=== PATIENT | male | born 1950 | race Caucasian/White ===

== ENCOUNTER 2024-06-10 13:22 | Outpatient (CLI) | payer MEDICARE, OTHER, SELFPAY ==
--- NOTE | ~2024-06-10 | XR_ITS ---
Left Knee Technique: AP, lateral, and sunrise views were obtained. Clinical History: Arthritis Findings: No fracture or dislocation is seen. Osseous alignment is anatomic. There is mild medial com partment narrowing. Minimal patellar osteophyte formation noted. Soft tissues are unremarkable. No alisa int effusion is seen. Impression: Mild degenerative changes, as above. Reviewed, dictated and finalized at location . Impression: Mild degenerative changes, as above.
--- OUTSIDE RECORDS SUMMARY | 2024-06-11 13:55 | XMS_ITS | Referral Summary ---
Author Organization [facility] Address [address] [place] [address] Care Team Providers Care Technician [employer] Name Role Phone Jesus Vasquez MD Primary Care Provider [phone] Marie Lundberg MD Unavailable Adis Archer MD Unavailable Jackie Rae DO Unavailable [phone] Encounters Date Type Department Care Team Description 05/13/2024 Telephone [facility] [address] [address] Jesus Vasquez MD Med Refill 05/13/2024 1:00 PM CDT Office Visit [facility] [address] [address] Ema Hough NP Acute URI (Primary Dx); Class 2 obesity due to excess calories without serious comorbidity with body mass index (BMI) of 35.0 to 35.9 in adult 05/04/2024 10:15 AM CDT Procedure visit [facility], [address] [place] [address] Orin Rose Au.D. Sensorineural hearing loss, bilateral (Primary Dx) 04/12/2024 9:45 AM [employer] DEPARTMENT CHAIR Infusion [facility] Non-Oncology Infusion [address] [place] [id number] Arteriosclerosis of coronary artery (Primary Dx) 04/04/2024 Orders Only [facility] Non-Oncology Infusion [id number] [place] [address] DaviesCuauhtemoc from Last 3 Months Allergies Active Allergy Reactions Criticality Noted Date Comments Isosorbide Joint pain Low 09/17/2017 Lisinopril Cough Low 07/18/2014 Xbzeevq-Bma-Blz Reductase Inhibitors Muscle pain Medium Medications magnesium oxide (MAG-OX) 400 mg (241.3 mg elemental magnesium) tabletIndications:hy pomagnesemia Take 1 tablet (400 mg total) by mouth 2 (two) times a day 11 08/24/19 18 Active cholecalciferol (VITAMIN D-3) 2,000 unit tablet Take 1 tablet (2,000 Units total) by mouth daily. 30 tablet 09/18/19 18 Active valsartan (DIOVAN) 320 mg tablet Take 1 tablet (320 mg total) by mouth daily Active carboxymethylcellulo se (REFRESH PLUS) 0.5 % dropperette 1 drop Ac tive triamcinolone (KENALOG) 0.1 % paste Apply 0.25 inches to teeth 2 (two) times a day as needed for mucositis 06/24/19 20 Active travoprost (TRAVATAN Z) 0.004 % drops Administer 1 drop into both eyes nightly Active dilTIAZem (CARDIZEM) 90 mg tabletIndications:Pa roxysmal Supraventricular Tachycardia Take 1 tablet (90 mg total) by mouth 4 (four) times a day 120 tablet 02/15/19 21 Active sotaloL (BETAPACE) 120 mg tablet Take 1 tablet (120 mg total) by mouth daily 30 tablet 02/16/19 21 Active warfarin (COUMADIN) 5 mg tabletIndications:Ve nous Thrombosis Take 1 tablet (5 mg total) by mouth daily 30 tablet 02/15/19 21 Active Additional Information Patient taking differently:5 mg oral Daily,MWF 1.5 tab (5MG each) every other day 1 pill., Indications: Venous Thrombosis, Reported on 05/13/2024 potassium chloride (KLOR-CON ORAL) Take 20 mg by mouth Active ezetimibe (ZETIA) 10 mg tablet 09/29/19 21 Active inclisiran (Leqvio) 284 mg/1.5 mL syringe Leqvio 284 mg/1.5 mL syringe 02/09/18 70 Active latanoprost (XALATAN) 0.005 % ophthalmic solution Administer 1 drop into both eyes nightly 11/11/19 23 Active multivitamin tabletIndications:Vi tamin Deficiency Prevention Take 1 tablet by mouth daily Active amoxicillin 500 mg capsule TAKE FOUR CAPSULES BY MOUTH ONE HOUR BEFORE APPOINTMENT 04/14/19 25 Active methylPREDNISolone (MEDROL DOSEPACK) 4 mg DosepackIndications: Acute URI Take as directed on package 1 packet 05/14/19 25 025 levoFLOXacin (LEVAQUIN) 500 mg tabletIndications:Up per Respiratory/HEENT Infection Take 1 tablet (500 mg total) by mouth daily for 10 days 10 tablet 05/14/19 25 025 Active Problems Problem Noted Date Diagnosed Date Pneumonia of right lower lobe due to infectious organism 07/10/2023 Assessment & Plan (07/10/2023 8:02 PM CDT): Resolving as anticipated. Complete Levaquin. Increase fluids. Follow-up if symptoms are not fully resolving Osteoarthritis of left knee 06/09/2023 Assessment & Plan (06/09/2023 4:11 PM CDT): Patient reports some catching, worse with turning and locking up; has pain associated with knee, not severe Will continue monitor closely; will refer to orthopedics if symptoms worsen or limit patient's activities Personal history of colonic polyps 11/11/2021 Overview (11/11/2021): Added automatically from request for surgery [id number] Family history of colon cancer 11/11/2021 Overview (11/11/2021): Added automatically from request for surgery [id number] Sensorineural hearing loss (SNHL) of both ears 0 06/22/2020 Assessment & Plan (06/24/2022 4:42 PM CDT): Stable, cleared implants in place Assessment & Plan (10/09/2020 11:21 AM CDT): Stable, has bilateral cochlear implants; reports that hearing is improving though still has generalized decreased hearing DVT (deep venous thrombosis) 02/05/2020 Overview (02/08/2020): Added automatically from request for surgery [id number] Assessment & Plan (12/03/2023 1:18 PM CDT): Stable, well controlled; DVT occurred after surgery; has been stable on anticoagulation for atrial fibrillation No evidence of recurrent disease; continue warfarin to maintain therapeutic range of INR 2-3 Assessment & Plan (02/12/2021 12:36 PM [employer]ICE [employer]PARTMENT CHAIR): Stable well controlled, on warfarin for atrial fibrillation; continue warfarin at therapeutic doses INR between 2-3 Assessment & Plan (10/09/2020 11:21 AM CDT): Stable, patient continues to follow with Pulmonary Medicine for PE burden Continue warfarin, patient on 5 mg daily and 7.5 mg Thursday Assessment & Plan (03/20/2020 2:27 PM [employer]AL [employer]ICE DEPARTMENT CHAIR): Currently on warfarin, difficulty with controlling INR, may transitionto Xarelto at future date if needs to continue on anticoagulation Benign prostatic hyperplasia with nocturia 01/12 Overview (01/13/2020): Week daytime urine stream, nocturia 4 times per night Assessment & Plan (06/09/2023 4:11 PM CDT): Stable, well controlled with current medications; few episodes of decreased urinary stream Continue to monitor closely Assessment & Plan (11/21/2022 2:54 PM CDT): - stream is weak but not bothersome to patient. Denies increase in symptoms. - allprior PSA in normal range - will continue to monitor Assessment & Plan (01/13/2020 9:39 AM [employer]ICE DEPARTMENT CHAIR): Discussed causes of BPH with patient and how it impacts urine screen increases nocturia Prescribed tamsulosin today to evaluate for improvement in nocturnal symptoms Pulmonary asbestosis 11/04/2019 Overview (11/04/2019): History of working in [employer] No advancement to lung cancer at this time Assessment & Plan (12/03/2023 1:18 PM CDT): Stable, well controlled; history of working stimulus; no evidence of lung cancer or advancement at this time Assessment & Plan (06/09/2023 4:10 PM CDT): Well controlled, no significant dyspnea or difficulty with breathing Will continue to monitor closely Assessment & Plan (11/21/2022 2:56 PM CDT): - No SOB or worsening of exercise intolerance. Will plan regular surveillance. Patient currently asymptomatic. 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; had some hypoxic brain injury; continue to monitor Assessment & Plan (11/21/2022 2:55 PM CDT): - no FND and fully recovered - continue BP management - Continue exetimibe and LeQvio Assessment & Plan (06/24/2022 4:42 PM CDT): Stable, no major residual effects or repeat neurological episodes Assessment & Plan (07/02/2021 4:13 PM CDT): Stable, no new recurrent neurological symptoms Assessment & Plan (11/04/2019 3:01 PM CDT): Stable, no residual deficits, no new neurological symptoms Presence of cardiac pacemaker 10/03/2019 Overview (01/13/2020): MRI Safe Skin lesion 06/24/2019 Assessment & Plan (06/24/2019 5:02 PM CDT): With diffuse sun damage and history of treatment for non-melanoma skin cancer Current lesion just started a few days ago I recommend keep clean Use topical vaseline Plan for derm referral if persistent Class 2 obesity due to exces s calories without serious comorbidity with body mass index (BMI) of 35.0 to 35.9 in adult 06/24/2019 Assessment & Plan (05/13/2024 1:44 PM CDT): Weight appropriate for patient. Assessment & Plan (12/03/2023 1:17 PM CDT): Stable, well controlled; no major changes to weight; encouraged continued limitation caloric intake as well as 30 minutes moderate intensity exercise 5 days per week Assessment & Plan (07/10/2023 8:04 PM CDT): BMI 34.10. Discussed healthy diet and exercise. Encourage weight loss Assessment & Plan (06/09/2023 4:10 PM CDT): Stable, improving; continue to encourage regular weight loss through activity and dietary changes Assessment & Plan (06/24/2022 4:41 PM CDT): Weight is stable, improving, continue to monitor encourage regular physical activity and limiting calories through portion control Assessment & Plan (12/15/2021 10:00 AM [employer]ICE [employer]MENT CHAIR): Stable, mild decrease in weight from prior Continue to encourage weight loss Assessment & Plan (11/04/2019 3:00 PM CDT): Encourage portion control with diet, patient does not have regular exercise, 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 Assessment & Plan (06/24/2019 5:03 PM CDT): discussed healthy diet, exercise and adequate sleep Body mass index is 33.15 kg/m . Aortic calcification (CMS/HCC) 06/24/2019 Assessment & Plan (12/03/2023 1:17 PM CDT): Stable, well controlled; follows with cardiology; continue with appropriate lipid control and blood pressure control Assessment & Plan (11/21/2022 4:31 PM CDT): - continue to mange BP and cholesterol. Patient currently asymptomatic. Assessment & Plan (10/09/2020 11:17 AM CDT): Stable, follows with cardiology and vascular specialist Will continue to monitor for further development Assessment & Plan (10/26/2019 4:35 PM CDT): Incidental finding on CXR 01/2018 Continue BP control, pradaxa Intolerant of statin Assessment & Plan (06/24/2019 5:04 PM CDT): Incidental finding on CXR 01/2018 Continue BP control, pradaxa Intolerant of statin Vitamin D deficiency 06/24/2019 Assessment & Plan (07/10/2023 8:05 PM CDT): Continue to take supplement Assessment & Plan (06/24/2019 5:05 PM CDT): Low in the past 05/2018 - 25(OH) Vit D 49 ng/mL Stable on current Paroxysmal atrial fibrillation 05/26/2018 Assessment & Plan (12/03/2023 1:16 PM CDT): Stable, well controlled, rate controlled, no major issues with anticoagulation Continue sotalol 120 mg daily, diltiazem 90 mg q.I.d., warfarin as needed to maintain therapeutic INR of 2-3 Assessment & Plan (07/10/2023 8:04 PM CDT): Asymptomatic in office with RRR upon examination. Continue sotalol and warfarin per Cardiology Assessment & Plan (06/09/2023 4:10 PM CDT): Stable, well controlled, rate controlled today; pacemaker in place, regular place Continue diltiazem 90 mg q.I.d., sotalol 120 mg daily, warfarin as needed to maintain INR between 2-3 Assessment & Plan (11/21/2022 2:51 PM CDT): - f/u with cardiology for regular INR check; has been in therapeutic range. - continue to avoid increasing intake of foods high in vit K - Continue warfarin, diltiazem, and sotalol Assessment & Plan (06/24/2022 4:40 PM CDT): Stable, rate controlled, on warfarin for management Continue Cardizem 90 mg q.i.d., Betapace 100 mg daily, valsartan 320 mg daily, warfarin 7.5 mg Thursday, 5 mg other days Assessment & Plan (12/15/2021 9:59 AM [employer]ICE DEPARTMENT CHAIR): Reports some easy bleeding with warfarin, no melena hematochezia Continues to follow with Cardiology Continue digoxin 125 mcg daily, diltiazem 90 mg q.i.d., sotalol 120 mg daily, valsartan 320 minute g daily Warfarin 0.5 mg Thursday, 5 mg other days a week Assessment & Plan (07/02/2021 4:12 PM CDT): Stable, no recent bruising or bleeding, no recent INR Patient heart rate is at target Continue digoxin 125 mcg daily, diltiazem 90 mg q.i.d., sotalol 120 mg daily Warfarin Thursday 7.5 mg; 5 mg for rest of week Check INR today Assessment & Plan (02/12/2021 12:35 PM [employer]INAL JUSTICE DEPARTMENT CHAIR): Stable, rate controlled, has pacemaker in place Patient on warfarin therapy for anticoagulation No significant episodes of GI bleeds or bruising or bleeding events Continue follow-up with Cardiology for management of symptoms Assessment & Plan (10/09/2020 11:20 AM CDT): Stable, rate controlled; today appears to be in sinus rhythm Patient continues on warfarin for atrial fibrillation and DVT prophylaxis Will continue to monitor, patient follows with Cardiology for comanagement Pacemaker in place for sick sinus syndrome Continue digoxin 125 mcg daily, diltiazem 90 mg 4 times per day, sotalol 120 mg daily Assessment & Plan (06/27/2020 1:20 PM CDT): Stable, rate controlled, well controlled on warfarin Continue to monitor INR and heart rate Assessment & Plan (03/20/2020 2:28 PM [employer]INAL JUSTICE DEPARTMENT CHAIR): Rate controlled, no hypotension or presyncope; continue to monitor Assessment & Plan (11/04/2019 3:01 PM CDT): Stable, well controlled, patient is status post electric cardioversion on 11/02 Patient has AICD in place Currently holding beta-blockers and cardiology started amiodarone for rhythm control Patient on Pradaxa for anticoagulation Patient has follow-up scheduled cardiology to evaluate successive cardioversion, today patient is regular rate and rhythm on physical exam Assessment & Plan (10/26/2019 4:35 PM CDT): s/p pacemaker Cardiology considering ablation Patient asymptomatic. Assessment & Plan (06/24/2019 5:03 PM CDT): NSR today on exam. 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 - report good energy - Use CPAP while sleeping Assessment & Plan (11/04/2019 2:59 PM CDT): Patient reports decreased sleep at night and episodes of interrupted sleep waking at 1:00 a.m. Patient has worked multiple shifts in past which may contribute to shift sleep disorder Assessment & Plan (10/26/2019 4:36 PM CDT): Stable on current Assessment & Plan (12/14/2018 12:15 PM [employer]AL [employer]ICE DEPARTMENT CHAIR): Stable on current regimen History of left mastoidectomy 11/10/2016 Gastroesophageal reflux disease 08/10/2013 Assessment & Plan (12/15/2021 10:00 AM [employer]AL JUSTICE DEPARTMENT CHAIR): Stable, well controlled Continue pantoprazole 40 mg daily Assessment & Plan (02/12/2021 12:36 PM CR[employer]INAL JUSTICE DEPARTMENT CHAIR): Stable, well controlled; continue pantoprazole 40 mg daily Assessment & Plan (10/09/2020 11:22 AM CDT): Stable, well controlled Continue pantoprazole 40 mg daily Essential hypertension 06/25/2013 Assessment & Plan (12/03/2023 1:15 PM CDT): Stable, well controlled, blood pressure at goal; no chest pain or pressure Continue diltiazem 90 mg q.I.d., sotalol 120 mg daily, valsartan 320 mg daily Assessment & Plan (07/10/2023 8:03 PM CDT): BP well controlled at 105/70. Continue to limit salt in diet and take diltiazem 90 mg 4 times daily and valsartan 320 mg daily Assessment & Plan (06/09/2023 4:09 PM CDT): Stable, well controlled, blood pressure at goal Continue diltiazem 90 mg q.I.d., sotalol 120 mg daily, valsartan 320 mg daily Assessment & Plan (11/21/2022 2:49 PM CDT): - continue valsartan Qday - BPP well controlled Assessment & Plan (06/24/2022 4:40 PM CDT): Stable, well controlled; blood pressure at target today Continue diltiazem 90 mg q.i.d., Betapace 120 mg daily, valsartan 320 mg daily Assessment & Plan (12/15/2021 10:00 AM [employer]INAL JUSTICE DEPARTMENT CHAIR): Stable, well controlled; blood pressure at target Continue above medications Assessment & Plan (07/02/2021 4:12 PM CDT): Stable, blood pressure well controlled; no chest pain headaches are episodes of orthostatics Continue valsartan 320 mg daily Assessment & Plan (02/12/2021 12:35 PM CRIMINAL JUSTICE DEPARTMENT CHAIR): Stable, well controlled; blood pressure at target Continue to follow with Cardiology continue valsartan 320 mg daily, Betapace 120 mg daily, diltiazem 90 mg q.i.d. Assessment & Plan (10/09/2020 11:18 AM CDT): Stable well controlled, blood pressure at target Continue valsartan 325 mg daily, diltiazem 90 mg 4 times per day Assessment & Plan (06/27/2020 1:20 PM CDT): Blood pressure at target, continue with medication as listed above Assessment & Plan (03/20/2020 2:28 PM CR[employer]INAL JUSTICE DEPARTMENT CHAIR): bp at target today with no hypotension, continue current medication Assessment & Plan (01/13/2020 9:38 AM CR[employer]INAL JUSTICE DEPARTMENT CHAIR): Stable well controlled, blood pressure at target today Continue current medication Assessment & Plan (11/04/2019 2:58 PM CDT): At target blood pressure today Patient taking valsartan for blood pressure control Holding beta-scotty due to recent electric cardioversion Assessment & Plan (10/26/2019 4:35 PM CDT): Controlled Cont current Assessment & Plan (06/24/2019 5:03 PM CDT): Well controlled Cont current. Assessment & Plan (12/14/2018 12:15 PM CR[employer]INAL JUSTICE DEPARTMENT CHAIR): Let controlled on current regimen continue current medication Dyslipidemia 06/24/2013 Assessment & Plan (12/03/2023 1:16 PM CDT): Stable, well controlled; lipids at goal Continue Leqvio 84 mg every 6 months Assessment & Plan (07/10/2023 8:05 PM CDT): Continue to limit fats in diet and take Zetia 10 mg daily Assessment & Plan (06/09/2023 4:11 PM CDT): Stable, well controlled, lipids at goal Continue lqvio 284 mg, Zetia 10 mg Assessment & Plan (06/24/2022 4:41 PM CDT): Stable, well controlled; last LDL above target of 120 Continue Zetia 10 mg daily, Leqvio weekly Assessment & Plan (07/02/2021 4:13 PM CDT): Stable, well controlled; does not tolerate statin; continue Zetia 10 mg daily Assessment & Plan (06/27/2020 1:20 PM CDT): Does not tolerate statin therapy, encourage dietary changes in activity changes in order to reduce cholesterol History of non-ST elevation myocardial infarctio n (NSTEMI) 06/15/2013 Arteriosclerosis of coronary artery 06/15/2013 Assessment & Plan (06/09/2023 4:10 PM CDT): Stable, well controlled; no chest pain, no changes to activity levels Patient has history of significant bleeding risk Currently on warfarin for management of atrial fibrillation; not a good candidate for ASA 81 mg daily due to increased bleeding risk Continue to monitor risk factors for heart disease Assessment & Plan (06/27/2020 1:19 PM CDT): Stable, well controlled, no current chest pain Patient continue on digoxin, diltiazem, sotalol, valsartan Warfarin for atrial fibrillation, no bleeding or bruising events Will continue to monitor INR Resolved Problems Problem Noted Date Diagnosed Date Resolved Date Encounter for screening colonoscopy 11/11/2021 12/02/2023 Overview (11/11/2021): Added automatically from request for surgery [id number] Pulmonary embolism without a cute cor pulmonale 02/06/2020 12/03/2023 Assessment & Plan (03/20/2020 2:28 PM CR[employer]INAL [employer]ICE DEPARTMENT CHAIR): Continue on warfarin A-fib 12/29/2019 03/05/2020 Overview (12/29/2019): Added automatically from request for surgery [id number] Assessment & Plan (01/13/2020 9:38 AM CRIMINAL JUSTICE DEPARTMENT CHAIR): In office rate and rhythm controlled, and blood pressure well controlled Has history of sick sinus syndrome Patient is scheduled for cardiac ablation on January 23 Continue on current medications for rhythm control including amiodarone and diltiazem for rate control BMI 32.0-32.9,adult 09/14/2017 06/24/19 20 Assessment & Plan (09/14/2017 10:37 AM CDT): Body mass index is 32.23 kg/m . BMI Follow-up includes: nutrition counseling, exercise counseling and education provided. Viral upper respiratory tract infection 09/14/2017 06/24/2019 Assessment & Plan (09/14/2017 10:46 AM CDT): Drink plenty of fluids. OTC medications include: Ibuprofen 2 to 3 tabs every 6 hours or Tylenol 2 tabs every 4 hours. Sudafed (behind the pharmacy) as directed. Mucinex as directed to thin the secretions. Flonase 1 spray each nostril daily. If your symptoms worsen or you develope a fever > 102, please call the office. Acute diffuse otitis externa of left ear 11/10/2016 06/24/2019 Assessment & Plan (11/10/2016 1:58 PM CDT): Mr. Martinez nis a 66 year old male with history of left mastoidectomy who presents with sensation of moisture or drainage in the left ear. Upon examination, there is a moderate purulent discharge in the left ear canal. There is a bulging or swelling in the ear canal which possibly represents inflammation, granuloma or abscess. Left ear was gently cleaned under microscopy. A culture was obtained. Patient will start Ciprodex otic suspension 4 drops into the left ear 2 times per day and follow up with Dr. Rosario. Plantar fasciitis 08/16/2014 06/24/2019 Overview (05/15/2016): Plantar fasciitis Temporary cerebral vascular dysfunction 06/25/2013 11/04/2019 Incontinence of feces 06/25/20132019 Overview (05/14/2016): INCONTINENCE OF FECES Cataract of both eyes 03/23/20122019 Assessment & Plan (12/14/2018 12:12 PM [employer]INAL [employer]ICE DEPARTMENT CHAIR): No current issues stable on current regimen Immunizations Immunization Administration Dates Next Due DTaP, Unspecified 02/10/2012 Influenza, Quad, Adjuvantate d, Intramuscular 11/16/2021 Influenza, Quadrivalent, Hig h Dose, Preservative Free, Intrr 11/21/2022,11/07/2020,10/26/2019 Influenza, Split 11/04/2012,11/09/2009 Influenza, Trivalent, High D ose, Split, Preservative Free, Intramuscular 12/02/2023,11/26/2018,12/06/2017 Influenza, Trivalent, IM (MDV) 12/03/2010 Influenza, Trivalent, Recomb inant, Egg Free, Preservative Free, Antibiotic Free, IM (FLUBLOK) 12/01/2014,11/30/2014 Influenza, Unspecified 11/17/2022(Deferr ed: Patient Refused),11/12/2020,11/09/2016 Pfizer SARS-CoV-2 Monovalent Vaccination (12+ Yrs) PURPLE 11/12/2020,04/18/2020,03/28/2020 Pneumococcal Conjugate PCV 13 02/08/2015 Pneumococcal Polysaccharide PPV23 10/26/2019, Tdap 01/13/2020 ZOSTER LIVE 04/02/2011 ZOSTER Recombinant 08/13/2019,03/29/2019 Social History Tobacco Use Types Packs/Day Years Used Date Smoking Tobacco: Never Smokeless Tobacco: Never Tobacco Cessation:Counseling Given: Not Answered Alcohol Use Standard Drinks/Week Comments Yes 6 (1 standard drink = 0.6 oz pur e alcohol) AUDIT-C Answer Date Recorded Q1: How often do you have a drink containing alc ohol? 2-3 times a week 06/04/2022 Average Number of Drinks Not on file 023 Frequency of Binge Drinking Not on file 05/11 PHQ-2 Answer Date Recorded PHQ-2 Total Score (If total score is 3 or more points, staff should administer the PHQ-9) 0 05/13/2024 Personal Safety Answer Date Recorded Have you ever been in or are you currently in a harmful physical or emotional relationship or is someone making you feel afraid or unsafe? 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 Not on file Not on file Not on file Last Filed Vital Signs Vital Sign Reading Time Taken Comments Blood Pressure 112/78 05/13/2024 12:49 PM CDT Pulse 80 05/13/2024 12:49 PM CDT Temperature 36.8 C (98.2 F) 05/13/2024 12:49 PM CDT Respiratory Rate 20 05/13/2024 12:4 9 PM CDT Oxygen Saturation 97% 05/13/2024 12: 49 PM CDT Inhaled Oxygen Concentration - - Weight 104.1 kg (229 lb 9.6 oz) 025 12:49 PM CDT Height 170.2 cm (5' 7 ) 05/13/2024 12:4 9 PM CDT Body Mass Index 35.96 05/13/2024 12:49 PM CDT Plan of Treatment Not on file Medical Devices Implanted Type Area Assembler Surgical Garment Device Identifier Shelf Expiration Date Model / Serial / Lot [employer] [id number] Yuval Huntalign 30mm 7fr 50mm 65cm 1 Push Delivery - [id number] Implanted:Qty: 1 on 02/08/2020 by Gilbert Ramos MD at [facility] IVC Filter [employer] [id number] / / Procedures Procedure Name Priority Date/Time Associated Diagnosis Comments HEPATITIS C ANTIBODY Routine 05/27/2023 2:15 PM CDT Need for hepatitis C screening test COLONOSCOPY 12/30/2021 10:08 AM CRIMINAL JUSTICE DEPARTMENT CHAIR from Last 3 Months or Most Recently Relevant to Health Maintenance Results * Hepatitis C antibody Blood (05/27/2023 2:15 PM CDT) Hep C Ab Nonreactive Nonreactive Comment: Interpretive Data Nonreactive: Antibodies to HCV not detected. Does NOT exclude the possibility of recent exposure to HCV. Equivocal: Equivocal for HCV antibodies. Supplemental molecular testing will be automatically performed to determine infection status in accordance with current CDC screening recommendations. Reactive: Positive for HCV antibodies. This may represent current or past HCV infection. Supplemental molecular testing will be automatically performed to determine current infection status in accordance with current CDC screening recommendations. Interpretive data was last revised on 2019. Testing performed by: [facility], [address] [place] [address]., [id number] Blood 05/27/2023 2:15 PM CDT 05/27/2023 7:29 PM CDT us Jesus Vasquez MD LAB MICROBIOLOGY - GENERA L ORDERABLES Final Result CESIA YIP MATTAWAN [facility] [place] [address] * COLONOSCOPY (12/30/2021 10:08 AM CRIMINAL JUSTICE DEPARTMENT CHAIR) Anatomical Region Laterality Modality Other Narrative Procedure Note Keith Payne MD - 12/30/2021 10:08 AM CST [facility] Patient Name: Eduard Martinez Procedure Date: 12/30/2021 10:08AM Date of : 1950 Admit Type: Outpatient Age: 71 Gender: Male Attending MD: Keith Payne M.D. Room: [facility] ENDOSCOPY ROOM 2 Note Status: Finalized Patient Profile: Refer to note in patient chart for documentation of history and physical. Procedure: Colonoscopy Indications: High risk colon cancer surveillance: Personalhistory of colonic polyps, Last colonoscopy: November 2016 Referring MD: Jesus Vasquez M.D. Providers: Keith Payne M.D. Impression: - Hemorrhoids found on perianal exam. - Four 3 to 5 mm polyps in the transverse colon andin the ascending colon, removed with a cold snare. Resected and retrieved. - Two 2 to 3 mm polyps in the ascending colon andin the cecum, removed with a jumbo cold forceps.Resected and retrieved. - Diverticulosis in the sigmoid colon. - The examination was otherwise normal. Recommendation: - Discharge patient to home. - Resume previous diet. - Continue present medications. - Resume Coumadin (warfarin) at prior dose in 2days. - Await pathology results. - Repeat colonoscopy in 3 years for surveillance. - Return to primary care physician as previously scheduled. Medicines: Propofol per Anesthesia Complications: No immediate complications. Estimated Blood Loss: Estimated blood loss: none. Procedure: Pre-Anesthesia Assessment: - This assessment was completed [Time ofAssessment] prior to the administration of sedation. The benefits, risks and alternatives of theprocedure and sedation were discussed and informed consentwas obtained. All questions were answered. Please referto the signed informed consent document in the medical record. The bowel preparation used was Miralax via single dose instruction. The bowel preparation used was bisacodyl tablets via single dose instruction.The scope was passed under direct vision. TheColonoscope [id number] was introduced through the anus and advanced to the the cecum, identified by appendiceal orifice and ileocecal valve. The colonoscopy was performed without difficulty. The patient tolerated the procedure well. The qualityof the bowel preparation was good. The ileocecalvalve, appendiceal orifice, and rectum werephotographed. Findings: Hemorrhoids were found on perianal exam. Four sessile polyps were found in the transverse colon and ascending colon. The polyps were 3 to 5 mm in size. These polyps were removedwith a cold snare. Resection and retrieval were complete. Verification of patient identification for the specimen was done by the physician and nurse using the patient's name and date. Estimated blood losswas minimal. Two sessile polyps were found in the ascending colon and cecum. The polyps were 2 to 3 mm in size. These polyps were removed with a jumbo cold forceps. Resection and retrieval were complete. Verification of patient identification for the specimen was done by the physician and nurse using the patient's name and date. Estimated blood losswas minimal. Multiple small and large-mouthed diverticula were found in thesigmoid colon. The exam was otherwise without abnormality. Electronically signed by Keith Payne M.D. Keith Payne M.D. 12/30/2021 11:04:10 AM Number of Addenda: 0 Note Initiated On: 12/30/2021 10:08 AM Procedure Code(s): --- Professional --- 02392, Colonoscopy, flexible; with removal of tumor(s), polyp(s), or other lesion(s) by snare technique [id number], 59, Colonoscopy, flexible; with biopsy, single or multiple Diagnosis Code(s): --- Professional --- K57.30, Diverticulosis of large intestine without perforation orabscess without bleeding D12.0, Benign neoplasm of cecum D12.2, Benign neoplasm of ascending colon D12.3, Benign neoplasm of transverse colon (hepatic flexure orsplenic flexure) K64.9, Unspecified hemorrhoids Z86.010, Personal history of colonic polyps CPT copyright 2020 [employer]. All rights reserved. The codes documented in this report are preliminary and upon academic coach reviewmay be revised to meet current compliance requirements. 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 ADVANCE DIRECTIVE 12/30/2021 10:58 AM Kalie ing Will ADVANCE DIRECTIVE 12/30/2021 10:58 AM 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 * Full Code (Latest Code Status on File) Date Activated Date Inactivated Comments 12/30/2021 9:59 AM 12/30/2021 3:49 PM * Full Code Date Activated Date Inactivated Comments 02/06/2020 5:36 AM 02/16/2020 8:58 PM Care Teams Technician Support Association Relationship Specialty Start Date End Date Jesus Vasquez MD [address] [place] [address] PCP - General Family Medicine 11/04/19 Marie Lundberg MD [address] [place] [address] Consulting Physician Cardiology 02/16/20 [place] [address] [id number] [place] [address] Consulting Physician Pulmonary Disease 02/16/20 Jackie Rae DO [address] [place] [id number] Referring Physician Dermatology 07/26/20
--- OUTSIDE RECORDS SUMMARY | 2024-06-11 13:55 | XMS_ITS | Encounter Summary ---
Author Organization [facility] Address [address] [place] [address] Phone Care Team Providers Care Track Watchman Name Role Phone Danish Brown MD Primary Care Provider No, Physician Primary Care Provider Jesus Vasquez MD Primary Care Provider [phone] Marie Lundberg MD Unavailable [phone] Adis Archer MD Unavailable Jackie Rae DO Unavailable [phone] Encounter Details Date Type Department Care Team (Late st Contact Info) Description 06/29/2017 Orders Only [facility] Provider, MD Yaya [address] [place] [id number] Social History Tobacco Use Types Packs/Day Years Used Date Smoking Tobacco: Never Smokeless Tobacco: Never Alcohol Use Standard Drinks/Week Comments No 0 (1 standard drink = 0.6 oz pur e alcohol) Sex and Gender Information Value Date Recorded Sex Assigned at Not on file Legal Sex Male 9:24 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 us Historical Provider LAB PATHOLOGY ORDERABLES Final Result documented in this encounter Visit Diagnoses Not on filedocumented in this encounter Additional Health Concerns Infection Onset Date Last Indicated Resolved Time COVID: Suspected 02/05/2020 02/05/2020 02/06/2020 12:20 AM MARRIAGE THERAPIST Respiratory Infection (ALEJANDRA), contact + droplet Comment:Automatically added due to negative COVID-19 result. 02/06/2020 02/06/2020 02/06/2020 9:5 1 AM MARRIAGE THERAPIST COVID: Suspected 02/11/2020 02/11/2020 02/12/2020 1:35 PM MARRIAGE THERAPIST Respiratory Infection (ALEJANDRA), contact + droplet Comment:Automatically added due to negative COVID-19 result. 02/12/2020 02/12/2020 02/13/2020 4:4 2 PM MARRIAGE THERAPIST COVID: Suspected 07/06/2023 07/06/2023 07/06/2023 9:10 AM CDT documented as of this encounter Care Teams Track Watchman Relationship Specialty Start Date End Date Danish Brown MD [address] [place] [address] PCP - General 05/09/16 08/24/19 No, Physician PCP - General 08/25/19 11/03/19 Jesus Vasquez MD [address] [place] [address] PCP - General Family Medicine 11/04/19 Marie Lundberg MD [address] [place] [address] Consulting Physician Cardiology 02/16/20 [place] [address] [facility] [address] [place] [address] Consulting Physician Pulmonary Disease 02/16/20 Jackie Rae DO [address] [place] [address] Referring Physician Dermatology 07/26/20 documented as of this encounter
--- OUTSIDE RECORDS SUMMARY | 2024-06-11 13:55 | XMS_ITS | CONTINUITY OF CARE DOCUMENT ---
Author Name saurabh wiley Address Unknown Organization [facility] Address [address] [facility] [address] [place] [address] Phone [phone] Care Team Providers Care Case Specialist Name Role Phone Toño MELÉNDEZ, Marie Unavailable RAMAKRISHNA HAYES MD Unavailable RAMAKRISHNA HAYES MD Unavailable PROBLEMS Condition Status Date Provider Notes Anticoagulation: coumadin active Anne Marie lara Fatigue, weakness active Marie Lundberg MD S/P Dual chamb PCM - Biotron ik ( MRI Safe) active Sonia Cardoso Exposure to SARS-associated coronavirus active Marie Lundberg MD Dizziness and giddiness active Marie esquivel MD Bradycardia active Marie Lundberg MD Sick sinus syndrome active Marie navarro MD CAD active Marie Lundberg MD NSTEMI S/P PDA STENT active Marie new MD HTN SYSTOLIC active Marie Lundberg MD DEEP VENOUS THROMBOPHLEBITIS , LEG, RIGHT active Marie Lundberg MD Dyslipidemia active Marie Lundberg MD GERD active Marie Lundberg MD Family History of Sudden Car diac : active ? Marie Lundberg MD Leg pain active Marie Lundberg MD Palpitations active Marie Lundberg MD Atrial fibrillation active Marie navarro MD Shortness of breath active Marie navarro MD Chest discomfort active Marie Shepard Carotid bruit active Hayden Kaye Poor sleep hygiene completed - Marie Lundberg MD Sleep apnea active Marie Lundberg MD Pulmonary embolism active Sarah Olguin Double vision active Sarah Olguin Hypertriglyceridemia active Rebekah Owens Obesity active Rebekah Owens Mitral regurgitation, mild active Marie leyva MD Tricuspid regurgitation, mild active Alba Lundberg MD PHYSICAL EXAMINATION completed - Alo Herrera MD ENCOUNTERS Date Type Provider Location Encounter Diag nosis - In-person encounter Office Visit Marie Ludnberg MD [facility] - In-person encounter Office Visit Marie Lundberg MD [facility] Office - In-person encounter Office Visit Marie Lundberg MD [facility] - In-person encounter Office Visit Marie Lundberg MD [facility] Mitral regurgitation, mildTricuspid regurgitation, mild - In-person encounter Office Visit Marie Lundberg MD [facility] - In-person encounter Office Visit Marie Lundberg MD [facility] - In-person encounter Office Visit Marie Lundberg MD [facility] Office HypertriglyceridemiaObesity - In-person encounter Office Visit Marie Lundberg MD [facility] - In-person encounter Office Visit Marie Lundberg MD [facility] Double vision - In-person encounter Office Visit Marie Lundberg MD [facility] - In-person encounter Office Visit Marie Lundberg MD [facility] - In-person encounter Office Visit Marie Lundberg MD [facility] Office - In-person encounter Office Visit Marie Lundberg MD [facility] - In-person encounter Office Visit Marie Lundberg MD [facility] - In-person encounter Office Visit Marie Lundberg MD [facility] Poor sleep hygieneSleep apneaPulmonary embolism - In-person encounter Office Visit Marie Lundberg MD [facility] - In-person encounter Office Visit Marie Lundberg MD [facility] - In-person encounter Office Visit Marie Lundberg MD [facility] - In-person encounter Office Visit Marie Lundberg MD [facility] - In-person encounter Office Visit Marie Lundberg MD [facility] - In-person encounter Office Visit Marie Lundberg MD [facility] - In-person encounter Office Visit Marie Lundberg MD [facility] - In-person encounter Office Visit Marie Lundberg [facility] Carotid bruit - In-person encounter Office Visit Marie Lundberg MD [facility] - In-person encounter Office Visit Marie Lundberg MD [facility] - In-person encounter Office Visit Marie Lundberg MD [facility] Chest discomfort - In-person encounter Office Visit Marie Lundberg MD [facility] Shortness of breath - In-person encounter Office Visit Marie Lundbreg MD [facility] Atrial fibrillation - In-person encounter Office Visit Marie Lundberg MD [facility] Office Palpitations - In-person encounter Office Visit Marie Lundberg MD [facility] NSTEMI S/P PDA STENTDyslipidemia - In-person encounter Office Visit Marie Lundberg MD [facility] - In-person encounter Office Visit Marie Lundberg MD [facility] Leg pain - In-person encounter Office Visit Marie Lundberg MD [facility] - In-person encounter Office Visit Marie Lundberg MD [facility] - In-person encounter Office Visit Marie Lundberg MD [facility] - In-person encounter Office Visit Marie Lundberg MD [facility] - In-person encounter Office Visit Marie Lundberg MD [facility] Family History of Sudden Cardiac : - In-person encounter Office Visit Marie Lundberg MD [facility] GERD - In-person encounter Office Visit Marie Lundberg MD [facility] - In-person encounter Office Visit Marie Lundberg MD [facility] - In-person encounter Office Visit Alo Herrera MD [facility] PHYSICAL EXAMINATIONNSTEMI S/P PDA STENTDyslipidemia - In-person encounter Office Visit Marie Lundberg MD [facility] DEEP VENOUS THROMBOPHLEBITIS, LEG, RIGHT - In-person encounter Office Visit Marie Lundberg MD [facility] CADNSTEMI S/P PDA STENTHTN SYSTOLIC VITAL SIGNS Date Observation Value Provider Body Mass Index (Ratio) 34.88 kg/m2 Matheus Moreno oxygen saturation, oximetry 95 % Marline Dasilva pulse rate 86 /min Marline Dasilva blood pressure, diastolic 82 mm[Hg] Em saima Dasilva blood pressure, systolic 116 mm[Hg] Adina ly Dasilva weight E&M 229.4 [lb_av] Marline Dasilva blood pressure, cuff size regular Em saima Dasilva height E&M 68 [in_i] Marline Dasilva Body Mass Index (Ratio) 34.63 kg/m2 Taye Lundberg MD oxygen saturation, oximetry 97 % Marline Dasilva pulse rate 82 /min Marline Dasilva blood pressure, diastolic 78 mm[Hg] Em saima Dasilva blood pressure, systolic 122 mm[Hg] Adina lauren Dasilva weight E&M 227.8 [lb_av] Marline Dasilva blood pressure, cuff size large Em saima Dasilva height E&M 68 [in_i] Marline Dasilva Body Mass Index (Ratio) 33.45 kg/m2 Taye Lundberg MD blood pressure, cuff size regular Ke rri Gruenenfelder blood pressure, diastolic 90 mm[Hg] Ke rri Gruenenfelder blood pressure, systolic 132 mm[Hg] Rubin Flores oxygen saturation, oximetry 94 % Sridevi Flores respiratory rate E&M 12 /min Sridevi barrera pulse rate 85 /min Sridevi abreu weight E&M 220 [lb_av] Sridevi Ayala lder height E&M 68 [in_i] Sridevi Gruenenfe lder Body Mass Index (Ratio) 34.21 kg/m2 Taye Lundberg MD blood pressure, cuff size regular Ke rri Gruenenfelder blood pressure, diastolic 82 mm[Hg] Ke rri Gruenenfelder blood pressure, systolic 146 mm[Hg] Ker ri Gruenenfelder oxygen saturation, oximetry 93 % Sridevi Gruenenfelder respiratory rate E&M 12 /min Sridevi G ruenenfelder pulse rate 83 /min Sridevi Gruenenfe lder weight E&M 225 [lb_av] Sridevi Gruenenfe lder height E&M 68 [in_i] Sridevi Gruenenfe lder Body Mass Index (Ratio) 34.66 kg/m2 Matheus Ahmedzai blood pressure, diastolic 91 mm[Hg] Li nkLogic blood pressure, systolic 135 mm[Hg] Sophia kLogic blood pressure, diastolic 91 mm[Hg] Ke rri Gruenenfelder blood pressure, systolic 135 mm[Hg] Ker ri Gruenenfelder blood pressure, cuff size large Ke rri Gruenenfelder oxygen saturation, oximetry 93 % Sridevi Gruenenfelder respiratory rate E&M 16 /min Sridevi G ruenenfelder pulse rate 87 /min Sridevi Gruenenfe lder weight E&M 228 [lb_av] Sridevi Gruenenfe lder height E&M 68 [in_i] Sridevi Gruenenfe lder Body Mass Index (Ratio) 34.21 kg/m2 Matheus Ahmedzai blood pressure, cuff size large Ri frankie Bello blood pressure, diastolic 88 mm[Hg] Ri frankie Bello blood pressure, systolic 127 mm[Hg] Harsh sanjay Bello oxygen saturation, oximetry 98 % Claire Bello respiratory rate E&M 16 /min Oscar Bello pulse rate 88 /min Claier Zapata son weight E&M 225 [lb_av] Claire Zapata son height E&M 68 [in_i] Claire Zapata son Body Mass Index (Ratio) 33.90 kg/m2 Matt camila Owens blood pressure, cuff size large Ke rri Gruenenfelder blood pressure, diastolic 86 mm[Hg] Ke rri Gruenenfelder blood pressure, systolic 122 mm[Hg] Ker ri Gruenenfelder oxygen saturation, oximetry 95 % Sridevi Gruenenfelder respiratory rate E&M 16 /min Sridevi G ruenenfelder pulse rate 76 /min Sridevi Gruenenfe lder weight E&M 223 [lb_av] Sridevi Gruenenfe lder height E&M 68 [in_i] Sridevi Gruenenfe lder Body Mass Index (Ratio) 34.82 kg/m2 Matheus Mercadomedzai blood pressure, cuff size large Ke rri Gruenenfelder blood pressure, diastolic 80 mm[Hg] Ke rri Gruenenfelder blood pressure, systolic 152 mm[Hg] Ker ri Gruenenfelder oxygen saturation, oximetry 95 % Sridevi Gruenenfelder respiratory rate E&M 14 /min Sridevi G ruenenfelder pulse rate 88 /min Sridevi Gruenenfe er weight E&M 229 [lb_av] Sridevi Shinenfe lder height E&M 68 [in_i] Sridevi Shinenfe er Body Mass Index (Ratio) 34.36 kg/m2 Taew on blood pressure, diastolic 80 mm[Hg] Li nkLog blood pressure, systolic 120 mm[Hg] Sophia kLogic blood pressure, cuff size large Ke rri Gruenenfelder blood pressure, diastolic 80 mm[Hg] Ke rri Gruenenfelder blood pressure, systolic 120 mm[Hg] Rubin ri Gruenenfelder oxygen saturation, oximetry 97 % Sridevi Shinenfmandaer respiratory rate E&M 14 /min Sridevi gore pulse rate 94 /min Sridevi Varshae [facility] weight E&M 226 [lb_av] Sridevi Varshae [facility] height E&M 68 [in_i] Sridevi Varshae [facility] Body Mass Index (Ratio) 34.36 kg/m2 Taew on blood pressure, resting Yes [facility] O'Lamine weight E&M 226 [lb_av] [facility] OLamine height E&M 68 [in_i] [facility] O'Lamine Body Mass Index (Ratio) 33.75 kg/m2 Taew on blood pressure, cuff size large Ke rri Gruenenfelder blood pressure, diastolic 84 mm[Hg] Ke rri Gruenenfelder blood pressure, systolic 132 mm[Hg] Rubin ri Gruenenfelder oxygen saturation, oximetry 98 % Sridevi Gruenenfelder respiratory rate E&M 16 /min Sridevi bustamantetierra pulse rate 80 /min Sridevi Ayala [facility] weight E&M 222 [lb_av] Sridevi Ayala [facility] height E&M 68 [in_i] Sridevi Ayala [facility] Body Mass Index (Ratio) 38.01 kg/m2 Taew on Sharif blood pressure, diastolic 80 mm[Hg] Phil Reeder blood pressure, systolic 130 mm[Hg] Pam Reeder oxygen saturation, oximetry 96 % Alfred Reeder respiratory rate E&M 16 /min Johnson Reeder pulse rate 79 /min Alfred Rice carey weight E&M 250 [lb_av] Alfred Rice [facility] height E&M 68 [in_i] Alfred Rice [facility] Body Mass Index (Ratio) 32.38 kg/m2 Taye Lundberg MD blood pressure, cuff size regular [facility] blood pressure, diastolic 70 mm[Hg] [facility], systolic 130 mm[Hg] Kri [facility] blood pressure, resting Yes [facility] 89 /min Concha Joe oxygen saturation, oximetry 96 % [facility] rate E&M 19 /min Concha Moab weight E&M 213 [lb_av] Concha Moab height E&M 68 [in_i] [facility] Body Mass Index (Ratio) 32.69 kg/m2 Taew on Sharif Inhaled O2 2 L/min [facility] blood pressure, cuff size regular Jan Diaz respiratory rate E&M 18 /min Concha Arriaga pulse rate 90 /min Concha Arriaga oxygen saturation, oximetry 96 % Concha Arriaga weight E&M 215 [lb_av] Concha Arriaga blood pressure, diastolic 70 mm[Hg] Jan Diaz blood pressure, systolic 112 mm[Hg] Ryley Arriaga height E&M 68 [in_i] Concha Moab Body Mass Index (Ratio) 31.62 kg/m2 Ta[place] on Sharif blood pressure, resting Yes [facility] blood pressure, diastolic 64 mm[Hg] [facility] blood pressure, systolic 108 mm[Hg] Maile ttany [facility] pulse rate 79 /min [facility] oxygen saturation, oximetry 96 % Cynthia Block weight E&M 208 [lb_av] Cynthia Block respiratory rate E&M 16 /min [facility] Block height E&M 68 [in_i] Cynthia Block Body Mass Index (Ratio) 34.33 kg/m2 Taye Lundberg MD blood pressure, diastolic 70 mm[Hg] Phil Reeder blood pressure, systolic 120 mm[Hg] Pam Cassiefrain Reeder oxygen saturation, oximetry 96 % Alfred Reeder respiratory rate E&M 20 /min Johnson Reeder pulse rate 81 /min Alfred hawk weight E&M 225.8 [lb_av] AlfredTayler pinto height E&M 68 [in_i] Alrfed hawk Body Mass Index (Ratio) 33.99 kg/m2 Taye Lundberg MD blood pressure, cuff size regular Jan ortez pulse rate 81 /min Concha Arriaga oxygen saturation, oximetry 96 % Concha Arriaga blood pressure, diastolic 80 mm[Hg] Jan ortez blood pressure, systolic 120 mm[Hg] Ryley vásquez respiratory rate E&M 19 /min Concha Arriaga weight E&M 223.6 [lb_av] Cocnha height E&M 68 [in_i] Concha Body Mass Index (Ratio) 33.45 kg/m2 Taew on Sharif blood pressure, cuff size large Ke rri Enuenenfwhite [facility] centerer blood pressure, diastolic 82 mm[Hg] Ke rri Enuenenfwhite [facility] centerer blood pressure, systolic 108 mm[Hg] Rubin ri Varshawhite [facility] oxygen saturation, oximetry 97 % Sridevi Shinenfwhite [facility] cent[facility] respiratory rate E&M 16 /min Sridevi G ezraenenfelder pulse rate 82 /min Sridevi Grromelnenfe [facility] weight E&M 220 [lb_av] Sridevi Gruenenfe [facility] height E&M 68 [in_i] Sridevi Cassidynenfe [facility] Body Mass Index (Ratio) 32.99 kg/m2 Taye Lundberg MD blood pressure, diastolic 88 mm[Hg] Fe tremayne Leung blood pressure, systolic 158 mm[Hg] Fel icia Leung oxygen saturation, oximetry 97 % Marine Leung respiratory rate E&M 16 /min Mairne Leung weight E&M 217 [lb_av] Marine Leung height E&M 68 [in_i] Marine Leung Body Mass Index (Ratio) 33.45 kg/m2 Ta[place] on Sharif blood pressure, cuff size regular Kr pérez Arriaga blood pressure, diastolic 80 mm[Hg] Jan sharita Joe blood pressure, systolic 130 mm[Hg] Jani [facility] pulse [facility] 70 /min [facility] saturation, oximetry 100 % Concha respiratory rate E&M 19 /min Concha weight E&M 220 [lb_av] Concha height E&M 68 [in_i] Concha Body Mass Index (Ratio) 33.75 kg/m2 Taye Lundberg MD blood pressure, cuff size regular Jan ortez blood pressure, diastolic 68 mm[Hg] Jan [facility] blood pressure, systolic 140 mm[Hg] Ryley [facility] oxygen saturation, oximetry 98 % Concha pulse rate 71 /min Concha respiratory rate E&M 19 /min Concha weight E&M 222 [lb_av] Concha height E&M 68 [in_i] Concha Body Mass Index (Ratio) 33.22 kg/m2 Taye Lundberg MD blood pressure, diastolic 101 mm[Hg] Fe tremayne Leung blood pressure, systolic 155 mm[Hg] Fel icia Leung pulse rate 72 /min Marine Leung oxygen saturation, oximetry 96 % Marine Leung respiratory rate E&M 16 /min Marine Leung weight E&M 218.50 [lb_av] Marine Leung height E&M 68 [in_i] Marine Leung Body Mass Index (Ratio) 33.75 kg/m2 Jord en Vargas blood pressure, diastolic 97 mm[Hg] Fe tremayne Leung blood pressure, systolic 148 mm[Hg] Fel icia Leung oxygen saturation, oximetry 96 % Marine Leung respiratory rate E&M 16 /min Marine Leung pulse rate 72 /min Marine Leung weight E&M 222 [lb_av] Marine Leung height E&M 68 [in_i] Marine Leung Body Mass Index (Ratio) 33.75 kg/m2 Jord en Vargas blood pressure, diastolic, standing 91 mm [Hg] Marie Lundberg MD blood pressure, systolic, standing 153 mm [Hg] Marie Lundberg MD blood pressure, diastolic 70 mm[Hg] Kr isty Moab blood pressure, systolic 118 mm[Hg] Kri sty Moab pulse rate 65 /min Concha Joe blood pressure, cuff size regular Jan Arriagaby oxygen saturation, oximetry 94 % Concha Joe respiratory rate E&M 17 /min Concha Moab weight E&M 222 [lb_av] Concha Joe height E&M 68 [in_i] Concha Moab Body Mass Index (Ratio) 33.30 kg/m2 Jord en Vargas pulse rate 66 /min Concha Joe respiratory rate E&M 17 /min Concha Moab oxygen saturation, oximetry 97 % Concha Moab blood pressure, diastolic 90 mm[Hg] Jan isty Moab blood pressure, systolic 140 mm[Hg] Kri sty Joe blood pressure, cuff size regular Jan isty Joe weight E&M 219 [lb_av] Concha Joe height E&M 68 [in_i] Concha Moab Body Mass Index (Ratio) 34.36 kg/m2 Taye Lundberg MD blood pressure, diastolic 103 mm[Hg] Dakota Bueno blood pressure, systolic 159 mm[Hg] Luisa VallesHemal oxygen saturation, oximetry 98 % Arely Bueno pulse rate 63 /min Arely Recio weight E&M 226 [lb_av] Arely Recio height E&M 68 [in_i] Arely Recio Body Mass Index (Ratio) 32.08 kg/m2 Taye Lundberg MD blood pressure, diastolic 80 mm[Hg] Phil HillLamine blood pressure, systolic 122 mm[Hg] Pam mann [facility] oxygen saturation, oximetry 96 % [facility] respiratory rate E&M 16 /min [facility] pulse rate 62 /min [facility] weight E&M 211 [lb_av] [facility] height E&M 68 [in_i] [facility] Body Mass Index (Ratio) 32.38 kg/m2 Taye Lundberg MD blood pressure, diastolic 74 mm[Hg] Shan Solis blood pressure, systolic 112 mm[Hg] Kamla Solis respiratory rate E&M 16 /min Everett Solis oxygen saturation, oximetry 97 % Everett Solis pulse rate 70 /min Everett [facility] weight E&M 213 [lb_av] Everett [facility] height E&M 68 [in_i] [facility] Body Mass Index (Ratio) 32.69 kg/m2 Taye Lundberg MD pulse rate 71 /min Jess Medina blood pressure, diastolic 80 mm[Hg] Phil Medina blood pressure, systolic 140 mm[Hg] Pam Medina oxygen saturation, oximetry 95 % Jess Medina weight E&M 215 [lb_av] Jess Adam respiratory rate E&M 17 /min Jess Adam height E&M 68 [in_i] Jess Adam blood pressure, resting Yes Vargas Calvo Body Mass Index (Ratio) 32.11 kg/m2 Vargas Calvo blood pressure, diastolic 90 mm[Hg] Phil Reeder blood pressure, systolic 151 mm[Hg] Pam Reeder oxygen saturation, oximetry 95 % Alfred Reeder respiratory rate E&M 18 /min Johnson Reeder pulse rate 63 /min Alfred Rice jinacarey weight E&M 211.2 [lb_av] Alfred pinto height E&M 68 [in_i] Alfred Rice carey blood pressure, diastolic 82 mm[Hg] Ne jatinder Diaz blood pressure, systolic 141 mm[Hg] Lyndsay yorka Diaz pulse rate 70 /min Danyelle Diaz oxygen saturation, oximetry 97 % Danyelle Diaz respiratory rate E&M 15 /min Danyelle Diaz Body Mass Index (Ratio) 32.23 kg/m2 [facility] [place] weight E&M 212 [lb_av] Danyelle Diaz blood pressure, diastolic 91 mm[Hg] Ne jatinder Diaz blood pressure, systolic 136 mm[Hg] Lyndsay beti Diaz pulse rate 74 /min Danyelle Diaz oxygen saturation, oximetry 97 % Danyelle Diaz respiratory rate E&M 15 /min Danyelle Diaz Body Mass Index (Ratio) 32.38 kg/m2 [facility] [place] weight E&M 213 [lb_av] Danyelle Emily blood pressure, diastolic 100 mm[Hg] Miguel miner Vince blood pressure, systolic 140 mm[Hg] Gayle harrison Vince pulse rate 61 /min Sonia Clarke oxygen saturation, oximetry 98 % Sonia Clarke respiratory rate E&M 16 /min Sonia Clarke Body Mass Index (Ratio) 32.35 kg/m2 Nathaniel Clarke weight E&M 212.8 [lb_av] Sonia Clarke blood pressure, diastolic 98 mm[Hg] Phil Reeder blood pressure, systolic 149 mm[Hg] Pam Yearacelycamila Reeder pulse rate 73 /min Alfred Rice kenn oxygen saturation, oximetry 96 % Alfred Reeder respiratory rate E&M 18 /min Johnson Reeder Body Mass Index (Ratio) 32.17 kg/m2 Ama Reeder weight E&M 211.6 [lb_av] Alfred portercarey blood pressure, diastolic 70 mm[Hg] Alon christy Agustina blood pressure, systolic 112 mm[Hg] Alon christy Berrios pulse rate 85 /min Alonchristy Berrios oxygen saturation, oximetry 97 % Alonchristy Berrios respiratory rate E&M 18 /min Alonchristy Agustina Body Mass Index (Ratio) 28.67 kg/m2 Alon'clarence gottlieb Agustina weight E&M 188.6 [lb_av] Alonnediamond Agustina Body Mass Index (Ratio) 30.83 kg/m2 Alon'clarence gottlieb Agustina blood pressure, diastolic 92 mm[Hg] Je christy Agustina blood pressure, systolic 140 mm[Hg] Alon christy Agustina pulse rate 73 /min Jechristy Agustina oxygen saturation, oximetry 98 % Rosamaria Berrios respiratory rate E&M 17 /min Rosamaria Berrios weight E&M 202.8 [lb_av] Rosamaria Berrios Body Mass Index (Ratio) 31.77 kg/m2 Stephany montiel Najera blood pressure, diastolic 90 mm[Hg] Stan osorio Najera blood pressure, systolic 149 mm[Hg] Angel akbar Najera pulse rate 71 /min Stacie Arvada oxygen saturation, oximetry 98 % Stacie Arvada respiratory rate E&M 16 /min Stacie Arvada weight E&M 209 [lb_av] [facility] Body Mass Index (Ratio) 29.49 kg/m2 [facility], diastolic 70 mm[Hg] As [facility] blood pressure, systolic 110 mm[Hg] [facility] pulse rate 67 /min [facility] oxygen saturation, oximetry 98 % [facility] respiratory rate E&M 15 /min Chi [facility]ro weight E&M 194 [lb_av] [facility] Body Mass Index (Ratio) 29.45 kg/m2 [facility] blood pressure, diastolic 80 mm[Hg] As [facility] blood pressure, systolic 116 mm[Hg] [facility] pulse rate 77 /min [facility] oxygen saturation, oximetry 97 % [facility] respiratory rate E&M 15 /min [facility] weight E&M 193 [lb_av] [facility] Body Mass Index (Ratio) 29.76 kg/m2 [facility] blood pressure, diastolic 85 mm[Hg] As [facility] blood pressure, systolic 134 mm[Hg] [facility] pulse rate 65 /min Pamdiamond [place] oxygen saturation, oximetry 97 % Pamdiamond [place] respiratory rate E&M 17 /min Chi [facility] weight E&M 195 [lb_av] Pamdiamond [place] blood pressure, diastolic 96 mm[Hg] As [facility] blood pressure, systolic 144 mm[Hg] [facility] Eron Body Mass Index (Ratio) 30.06 kg/m2 [facility] Vangiedharmesh pulse rate 65 /min Pamdiamond [place] oxygen saturation, oximetry 96 % Pamdiamond [place] respiratory rate E&M 17 /min Pam Eron weight E&M 197 [lb_av] Pamdiamond [place] Body Mass Index (Ratio) 29.76 kg/m2 [facility] blood pressure, diastolic 90 mm[Hg] As [facility] blood pressure, systolic 134 mm[Hg] [facility] Vangiedharmesh pulse rate 59 /min Pam milagro oxygen saturation, oximetry 94 % Pam Eron respiratory rate E&M 16 /min Pamdiamond [place] weight E&M 195 [lb_av] Pamdiamond [place] Body Mass Index (Ratio) 30.83 kg/m2 Anea ambreen Benny blood pressure, diastolic 80 mm[Hg] An eatris Benny blood pressure, systolic 120 mm[Hg] Ane atris Benny pulse rate 69 /min Rosemaryatrvirgen Zapata oxygen saturation, oximetry 97 % Mike Zapata respiratory rate E&M 18 /min Aneatri s Benny weight E&M 202 [lb_av] Mike Zapata height E&M 68 [in_i] Mike Zapata ALLERGIES Allergy Name Onset Date Reaction Criticality Status MORPHINE High Criticality suspende d LISINOPRIL chronic dry cough Low Criticality ac tive ATORVASTATIN BLE pain, painful to ambulate High Criticality active RESULTS Date Observation Value Provider Reference Range Interpretation Location coagulation managed by Jenny Sorto RN international normalized ratio (INR) 2.8 Jenny Sorto RN Normal coagulation managed by Jenny Sorto RN international normalized ratio (INR) 2.6 Jenny Sorto RN Normal international normalized ratio (INR) 2.4 Anne Marie Linda Normal coagulation managed by Anne Marie Linda RN Anne Marietete Linda international normalized ratio (INR) 2.3 Anne Marie Linda Normal coagulation managed by Anne Marie Linda RN Anne Marietete Linda coagulation managed by Jenny Sorto RN international normalized ratio (INR) 2.6 Anne Marie Linda Normal coagulation managed by Anne Marie Linda international normalized ratio (INR) 2.6 Anne Marie Linda Normal coagulation managed by Anne Marie Linda RN Anne Marietete Linda international normalized ratio (INR) 3.0 Anne Marie Linda Normal coagulation managed by Anne Marie Linda coagulation managed by Anne Marie Linda RN Anne Marietete Linda coagulation managed by Devon Zapata RN international normalized ratio (INR) 3.2 Devon Zapata RN Normal coagulation managed by Anne Marie Linda international normalized ratio (INR) 2.7 Anne Marie Linda Normal international normalized ratio (INR) 3.0 Anne Marie Linda Normal coagulation managed by Anne Marie Linda international normalized ratio (INR) 2.8 Anne Marie Alexei Normal coagulation managed by Anne Marie Linda RN Anne Marie Alexei coagulation managed by Anne Marie Linda RN Anne Marie Alexei international normalized ratio (INR) 3.2 Anne Marie Alexei Normal international normalized ratio (INR) 3.2 Anne Marie Alexei Normal coagulation managed by Anne Marie Linda RN Anne Marie Alexei international normalized ratio (INR) 3.0 Anne Marie Alexei Normal coagulation managed by Anne Marie Linda RN Anne Marietete Linda international normalized ratio (INR) 2.9 Anne Marie Alexei Normal coagulation managed by Anne Marie Linda RN Anne Marie Alexei coagulation managed by Antonina Lopez RN international normalized ratio (INR) 4.2 Antonina Lopez RN Normal prothrombin time (patient) 50.0 s Antonina Lopez RN international normalized ratio (INR) 3.5 Sridevi Grromelnepatricia Normal prothrombin time (patient) 42.4 s Sridevi Gruenenfelder international normalized ratio (INR) 3.2 Anne Marie Alexei Normal coagulation managed by Anne Marie Linda RN Anne Marietete Linda coagulation managed by Antonina Lopez RN international normalized ratio (INR) 2.8 Antonina Lopez RN Normal prothrombin time (patient) 33.6 s Antonina Lopez RN coagulation managed by Antonina Lopez RN international normalized ratio (INR) 4.1 Antonina Lopez RN Normal coagulation managed by Devon Zapata RN international normalized ratio (INR) 1.5 Devon Zapata RN Normal coagulation managed by Antonina Lopez RN international normalized ratio (INR) 3.2 Antonina Lopez RN Normal international normalized ratio (INR) 2.9 Anne Marie Linda Normal coagulation managed by Anne Marie Linda international normalized ratio (INR) 3.3 Anne Marie Alexei Normal coagulation managed by Anne Marie Linda RN Anne Marietete Linda coagulation managed by Antonina Lopez RN international normalized ratio (INR) 2.5 Antonina Lopez RN Normal prothrombin time (patient) 30.4 s Antonina Lopez RN international normalized ratio (INR) 2.2 Anne Marietete Linda Normal coagulation managed by Anne Marie Linda international normalized ratio (INR) 2.2 Anne Marietete Linda Normal coagulation managed by Anne Marie Linda international normalized ratio (INR) 2.6 Anne Marie Alexei Normal coagulation managed by Anne Marie Linda international normalized ratio (INR) 1.5 Anne Marie Linda Normal coagulation managed by Anne Marie Linda international normalized ratio (INR) 2.4 Anne Marie Linda Normal coagulation managed by Anne Marie Linda international normalized ratio (INR) 2.4 Anne Marie Alexei Normal coagulation managed by Anne Marie Linda international normalized ratio (INR) 2.4 Anne Marie Alexei Normal coagulation managed by Anne Marie Linda international normalized ratio (INR) 2.7 Anne Marieadam Linda Normal coagulation managed by Anne Marie Linda international normalized ratio (INR) 2.6 Anne Marie Linda Normal coagulation managed by Anne Marie Linda coagulation managed by Antonina Lopez RN international normalized ratio (INR) 2.5 Antonina Lopez RN Normal coagulation managed by Antonina Lopez RN international normalized ratio (INR) 2.3 Antonina Lopez RN Normal international normalized ratio (INR) 2.0 Anne Marietete Laurenenz Normal coagulation managed by Anne Marie Linda RN Anne Marietete Laurenenz international normalized ratio (INR) 1.4 Anne Marie Alexei Normal coagulation managed by Anne Marie Linda coagulation managed by Anne Marie Linda international normalized ratio (INR) 3.1 Sridevi Flores Normal prothrombin time (patient) 37.5 s Sridevi Flores coagulation managed by Anne Marie Linda prothrombin time (patient) 31.1 s Claire Bello international normalized ratio (INR) 2.6 Claire Bello Normal coagulation managed by Antonina Lopez RN international normalized ratio (INR) 2.8 Anne Marie Linda Normal coagulation managed by Anne Marie Linda coagulation managed by Anne Marie Linda prothrombin time (patient) 22.0 s Chastity Jey international normalized ratio (INR) 1.8 Chastity Jey Normal prothrombin time (patient) 22.0 s Anne Marie Alexei international normalized ratio (INR) 1.8 Anne Marie Alexei Normal coagulation managed by Anne Marie Linda coagulation managed by Anne Marie Linda prothrombin time (patient) 30.0 s Celeste Juarez international normalized ratio (INR) 2.5 Celeste Juarez Normal coagulation managed by Ama Sawyer RN prothrombin time (patient) 29.3 s Concha Joe international normalized ratio (INR) 2.4 Concha Joe Normal prothrombin time (patient) 33.6 s Maddy Carreno international normalized ratio (INR) 2.8 Maddy Carreno Normal coagulation managed by Anne Marie Linda prothrombin time (patient) 35.6 s Chastity Jey international normalized ratio (INR) 3.0 Chastity Jey Normal prothrombin time (patient) 29.8 s Concha Moab international normalized ratio (INR) 2.5 Concha Joe Normal coagulation managed by Anne Marie Linda prothrombin time (patient) 30.8 s Concha Joe international normalized ratio (INR) 2.6 Concha Moab Normal prothrombin time (patient) 25.4 s Concha Joe international normalized ratio (INR) 2.1 Concha Moab Normal coagulation managed by Anne Marie Linda RN Anne Marietete Linda prothrombin time (patient) 22.2 s Concha Moab international normalized ratio (INR) 1.8 Concha Joe Normal coagulation managed by Hugh Vo RN international normalized ratio (INR) 6.0 Hugh Vo RN Normal prothrombin time (patient) 39.8 s Cynthia Block international normalized ratio (INR) 3.3 Cynthia Dumont Normal prothrombin time (patient) 27.8 s Concha Moab international normalized ratio (INR) 2.3 Ama Sawyer RN Low activated partial thromboplastin time (aPTT) 47 s [facility] 24-33 High prothrombin time (patient) 13.1 s [facility] 9.1-12.0 High international normalized ratio (INR) 1.3 [facility] 0.8-1.2 High bacteria, urine microscopy Few [employer] None seen/Few epithelial cells, urine None seen [facility] 0 - 10 RBC, Urine 0-2 /hpf [facility] 0 - 2 WBC urine on microscopy 0-5 /hpf [facility] 0 - 5 urinalysis, microscopic examination See below: [facility] nitrate, urine Negative [facility] Negative urobilinogen, urine, semiquantitative (dipstick) 0.2 [facility] 0.2-1.0 bilirubin, urine Negative [facility] Negative hemoglobin, urine, by dipstick 1+ [facility] Negative Abnormal ketones, urine, by test strip Negative [facility] Negative glucose, urine Negative [facility] Negative protein, urine, semiquantitative (dipstick) Negative [facility] Negative/Tr humaira leukocyte esterase, urine, by dipstick Negative [facility] Negative appearance, urine Clear [facility] Clear urine color Yellow [facility] Yellow pH, urine, semiquantitative 6.5 [facility] 5.0-7.5 specific gravity, body fluid 1.009 [facility] 1.005-1.030 basophil count, absolute 0.0 x10E3/uL [facility] 0.0-0.2 Eosinophil Absolute Count 0.2 X10E3/UL [facility] 0.0-0.4 monocyte count, blood, automated 0.8 X10E3/UL [facility] 0.1-0.9 lymphocyte count, blood, automated 1.7 X10E3/UL [facility] 0.7-3.1 Absolute Neutrophils 4.6 X10E3/UL [facility] 1.4-7.0 basophils as percent of blood leukocytes 0 % [employer] Not Estab. eosinophils as percent of blood leukocytes 3 % [employer] Not Estab. monocytes as percent of blood leukocytes 11 % [employer] Not Estab. lymphocytes as percent of blood leukocytes 23 % [employer] Not Estab. neutrophils as percent of blood leukocytes 63 % [employer] Not Estab. platelet count 190 X10E3/UL [facility] 337-378 0020/08 /18 red blood cell distribution width 12.7 % [facility] 11.6-15.4 mean corpuscular hemoglobin concentration, RBC 33.0 G/DL [facility] 31.5-35.7 mean corpuscular hemoglobin, RBC 31.7 pg [facility] 26.6-33.0 mean corpuscular volume, RBC 96 fL [facility] 79-97 hematocrit, blood 50.3 % [facility] 37.5-51.0 hemoglobin, blood 16.6 g/dL [facility] 13.0-17.7 erythrocyte (RBC) count 5.24 X10E6/UL [facility] 4.14-5.80 leukocyte count, blood 7.3 X10E3/UL [facility] 3.4-10.8 alanine aminotransferase (SGPT), serum 22 1/L [facility] 0-44 aspartate aminotransferase (SGOT), serum 18 1/L [facility] 0-40 alkaline phosphatase, serum 69 1/L [facility] 39-117 bilirubin, serum, total 0.7 mg/dL [facility] 0.0-1.2 albumin/globulin ratio, serum 1.8 [facility] 1.2-2.2 globulin, serum 2.3 [facility] 1.5-4.5 albumin, serum 4.2 g/dL [facility] 3.8-4.8 protein, total, serum 6.5 g/dL [facility] 6.0-8.5 calcium, serum 9.1 mg/dL [facility] 8.6-10.2 carbon dioxide, venous blood 26 mmol/L [facility] 20-29 chloride, serum 103 mmol/L [facility] 96-106 potassium, serum 4.4 mmol/L [facility] 3.5-5.2 sodium, serum 141 mmol/L [facility] 440-840 7933/08 /18 urea nitrogen/creatinin e ratio, serum 19 [facility] 10-24 eGFR if 92 mL/min/{1. 73_m2} [facility] >59 eGFR if not 80 mL/min/{1. 73_m2} [facility] >59 creatinine, serum 0.96 mg/dL [facility] 0.76-1.27 urea nitrogen, blood 18 mg/dL [facility] 8-27 blood glucose, random 93 mg/dL [facility] 65-99 anion gap, serum 13.3 [facility] - albumin/globulin ratio, serum 3.0 g/dL [facility] 1.1 - 2.5 High globulin, serum 2.1 [facility] 2.3 - 3.8 Low urea nitrogen/creatinin e ratio, serum 16.7 [facility] - Estimated Glomerular Filtration Rate (calc) 64.4 (?) [facility] 59.0 - chloride, serum 106.7 mmol/L [facility] 98.0 - 107.0 potassium, serum 4.4 mmol/L [facility] 3.5 - 5.1 sodium, serum 144.0 mmol/L [facility] 136.0 - 145.0 creatinine, serum 1.2 mg/dL [facility] 0.7 - 1.2 carbon dioxide, venous blood 24.0 mmol/L [facility] 23.0 - 31.0 albumin, serum 4.4 g/dL [facility] 3.5 - 5.2 calcium, [facility]3 [facility] aspartate aminotransferase (SGOT), serum 15.0 1/L [facility] 0.0 - 40.0 alkaline phosphatase, serum 68.0 1/L [facility] 40.0 - 130.0 alanine aminotransferase (SGPT), serum 18.0 1/L [facility] 0.0 - 41.0 protein, total, serum 6.5 g/dL [facility] 6.6 - 8.7 Low bilirubin, serum, total 0.6 mg/[facility] - 1.2 urea nitrogen, blood 20.0 mg/dL [facility] 8.0 - 23.0 blood glucose, random 102.0 mg/dL [facility] 74[facility] - 99.0 High red blood cell distribution width, size density 43.8 fL [facility] - immature granulocytes, percentage of total cells, blood 0.5 % [facility] - nucleated red blood cells as percent of blood leukocytes 0.0 % [facility] - red blood cell (erythrocyte) count, per high power field 0.0 10*3/UL [facility] - eosinophils as percent of blood leukocytes 3.8 % [facility] - neutrophils as percent of blood leukocytes 61.8 % [facility] - Absolute Neutrophils 4.7 CELLS/UL [facility] 1.5 - 7.8 basophils as percent of blood leukocytes 0.4 % [facility] - Absolute Basophils 0.0 CELLS/UL [facility] 0.0 - 0.2 monocytes as percent of blood leukocytes 10.2 % [facility] Monocytes 0.8 CELLS/UL [facility] 0.2 - 1.0 lymphocytes as percent of blood leukocytes 23.3 % [facility] - Absolute Lymphocytes 1.8 CELLS/UL [facility] 0.9 - 3.9 mean platelet volume 10.5 (?) [facility] - platelet count 207.0 THOUSAND/U L [facility] 100.0 - 400.0 mean corpuscular hemoglobin concentration, RBC 32.5 G/DL [facility] 31.0 - 38.0 mean corpuscular hemoglobin, RBC 31.1 pg [facility] 25.0 - 35.0 mean corpuscular volume, RBC 95.8 fL [facility] 75.0 - 100.0 hematocrit, blood 49.9 % [facility] 35.0 - 55.0 hemoglobin, blood 16.2 g/dL [facility] 11.5 - 16.5 erythrocyte count, whole blood 5.2 MILLION/UL [facility] 3.5 - 5.5 HISTORY OF MEDICATION USE Medication Status Instructions Dates Provider Indications Com ments diltiazem HCl 90 mg tablet active TAKE 1 TABLET BY MOUTH 4 TIMES A DAY Anne Marie Alexei valsartan 320 mg tablet active TAKE 1 TABLET BY MOUTH EVERY DAY Anne Marie Alexei sotalol 120 mg tablet active TAKE 1 TABLET BY MOUTH TWICE DAILY Esme Rushing ezetimibe 10 mg tablet active Take 1 tablet by mouth once daily Esme Rushing warfarin 5 mg tablet active Take 1 1/2 tablet by mouth every evening except on take 2 tabs (10mg) Jenny Sorto RN warfarin 5 mg tablet completed Take 1 1/2 tablet by mouth every evening except on Mon & Fri take 2 tabs = (10mg) - Antonina Lopez RN valsartan 320 mg tablet completed Take 1 tablet by mouth once daily - Anne Marie Alexei ezetimibe 10 mg tablet completed Take 1 tablet via g-tube once a day - Esme Rushing ezetimibe 10 mg tablet completed Take 1 tablet by mouth once daily - Sridevi Flores Leqvio 284 mg/1.5 mL syringe active given in office only Anne Marie Linda Klor-Con M20 20 mEq tablet,ER particles/cryst als active Take 1 tablet by mouth once a day TAKE 1 TABLET BY MOUTH EVERY DAY Gavin Dash warfarin 5 mg tablet completed Take 1 1/2 tablet by mouth every evening except on Mon & Fri take 2 tabs (10mg) - Antonina Lopez RN sotalol 120 mg tablet completed TAKE 1 TABLET BY MOUTH TWICE A DAY - Esme Rushing warfarin 5 mg tablet completed TAKE 1 AND 1/2 TABLET BY MOUTH EVERY EVENING - Antonina Lopez RN warfarin 5 mg tablet completed Take 1 1/2 tablet by mouth every evening - Devon Zapata RN Klor-Con M20 20 mEq tablet,ER particles/cryst als completed TAKE 1 TABLET BY MOUTH EVERY DAY - Gavin Dash ezetimibe 10 mg tablet completed Take 1 tablet by mouth once a day - Sukhi Bills sotalol 120 mg tablet completed TAKE 1 TABLET BY MOUTH TWICE DAILY - Esme Ellis magnesium oxide 400 mg (241.3 mg magnesium) tablet active TAKE 2 TABLETS TWICE A DAY Anne Marie Alexei ezetimibe 10 mg tablet completed Take 1 tablet by mouth once a day TAKE 1 TABLET BY MOUTH EVERY DAY - Sridevi Flores amoxicillin 500 mg tablet completed 4 tablet by mouth - Sarah Olguin Vitamin D3 50 mcg (2,000 unit) tablet active 1 tablet by mouth once a day Sridevi Flores sotalol 120 mg tablet completed Take 1 tablet by mouth once a day - Radha Ragsdale [employer] #30, 30 days supply, Prescribed by PAM SANTANA, Filled 02/16/2020 IPRATROPIUM-ALB UTEROL 0.5-2.5 (3) MG/3ML INHALATION SOLUTION completed TAKE 3 ML BY NEBULIZATION EVERY 6 (SIX) HOURS NEEDED FOR WHEEZING OR SHORTNESS OF BREATH - Sridevi Flores #180, 20 days supply, Prescribed by PAM SANTANA, Filled 02/16/2020 diltiazem HCl 90 mg tablet completed Take 1 tablet by mouth four times a day - Anne Marie Laurenenz #120, 30 days supply, Prescribed by PAM SANTANA, Filled 02/16/2020 digoxin 125 mcg (0.125 mg) tablet completed Take 1 tablet by mouth once a day - Radha Ragsdale NP BENZONATATE 200 MG ORAL CAPSULE completed TAKE 1 CAPSULE BY MOUTH THREE TIMES A DAY NEEDED FOR COUGH - Sridevi Flores #21, 7 days supply, Prescribed by PAM SANTANA, Filled 02/16/2020 warfarin 5 mg tablet completed TAKE 1 TAB (5MG) ON E,THUR,SAT,S UN. 1.5 TABS (7.5MG) ALL OTHER DAYS OR DIRECTED BY [facility] - Anne Marie Linda PERCOCET 5-325 MG ORAL TABLET completed One tablet each 6 hours PRN for pain moderate pain - Sridevi Flores AMBIEN 10 MG ORAL TABLET completed ONE TAB. AT BEDTIME PRN for insomnia - Alfred Aleman-Jose M20 20 mEq tablet,ER particles/cryst als completed TAKE 2 TABLETS ONCE DAILY FOR 1 WEEK THEN DECREASE TO 1 TABLET ONCE DAILY - Chastity Jey FUROSEMIDE 20 MG TABLET completed TAKE 1 TABLET BY MOUTH EVERY DAY - Cynthia Block AMIODARONE HCL 200 MG ORAL TABLET completed Take one tablet twice daily - Cynthia Dumont CARDIZEM CD 240 MG ORAL CAPSULE EXTENDED RELEASE 24 HOUR completed Take one capsule nightly - Sarah Olguin AMIODARONE HCL 200 MG ORAL TABLET completed Take one tablet 3 times daily for 3 weeks - Kika Roberts RN AMOXICILLIN 500 MG ORAL TABLET completed amoxicillin 2grams 2 hours before the dental work - Sridevi Flores PERCOCET 5-325 MG ORAL TABLET completed Take one tablet every 8 hours as needed for pain - Sridevi Flores CEPHALEXIN 500 MG ORAL CAPSULE completed Take one capsule 3 times daily for 10 days - Kika Roberts RN magnesium oxide 400 mg (241.3 mg magnesium) tablet completed Take 1 tablet by mouth twice a day - Sarah Olguin valsartan 320 mg tablet completed Take 1 tablet by mouth once a day - Esme Ellis pantoprazole 40 mg tablet,delayed release (/EC) completed Take 1 tablet by mouth every night - Radha Ragsdale NP FAMOTIDINE 20 MG ORAL TABLET completed one tab twice daily - Concha Diaz SOTALOL 80 MG TABLET completed HOLDING WHILE ON AMIODARONE AND CARDIZEM - Marie Lundberg MD MAGNESIUM OXIDE 400 MG ORAL TABLET completed ONE TAB TWICE A DAY - Concha Diaz PRADAXA 150 MG CAPSULE completed TAKE 1 CAPSULE BY MOUTH TWICE A DAY - Marie Lundberg MD timolol maleate 0.5% gel forming solution completed into right eye once a day - Radha Ragsdale NP ISOSORBIDE MONONITRATE ER 30 MG ORAL TABLET EXTENDED RELEASE 24 HOUR completed one tablet each day - Marie Lundberg MD FISH OIL CAPSULE completed ONE capsule. DAILY - Concha Diaz ALEVE CAPSULE completed as needed - Marie Lundberg MD FISH OIL CONCENTRATE 1000 MG ORAL CAPSULE completed One tab. daily - Sonia Clarke TRIAMCINOLONE ACETONIDE PASTE completed USE DIRECTED - Alfred Reeder Travatan Z 0.004% drops active Take as directed Sridevi Flores COZAAR 100 MG ORAL TABLET completed ONE TAB. DAILY at bed time ( dose increased from 50 to 100 mg) - Hayden Kaye VITAMIN D3 2000 UNIT ORAL CAPSULE completed TWICE DAILY - Concha Diaz ASPIRIN ADULT LOW DOSE 81 MG ORAL TABLET DELAYED RELEASE completed One Tab By Mouth Daily - Madonna Keys RN ZYRTEC ALLERGY 10 MG ORAL TABLET completed as needed - Sridevi Flores SUDAFED 30 MG ORAL TABLET completed 2 tabs every 6 hrs as needed - Pam Littlejohn XARELTO 20 MG ORAL TABLET completed One tab. daily with evening meal - Marie Lundberg MD XARELTO 15 MG ORAL TABLET completed one tablet twice a day for 3 weeks starting 06/22/13 ending 07/13 - Pam Littlejohn stop aspirin c ontinue Plavix LORATADINE TABLET completed 10 mg daily - Pam Littlejohn NITROLINGUAL 0.4 MG/SPRAY TRANSLINGUAL SOLUTION completed One spray as needed for chest discomfort - Rosamaria Berrios ZYRTEC ALLERGY TABLET completed as needed - Pam Littlejohn ASPIRIN 81 MG ORAL TABLET completed ONE TAB. DAILY - Marie Lundberg MD CLOPIDOGREL BISULFATE 75 MG ORAL TABLET completed ONE TAB DAILY - Kari Madrigal NP LISINOPRIL 20 MG ORAL TABLET completed 20 mg in am and 10 mg at night - Ama Sawyer RN DYMISTA 137-50 MCG/ACT NASAL SUSPENSION completed TAKE DIRECTED - Pam Littlejohn CARVEDILOL 6.25 MG TABLET completed HOLDING WHILE ON AMIODARONE AND CARDIZEM - Marie Lundberg MD ATORVASTATIN CALCIUM 20 MG ORAL TABLET completed ONE TAB AT BEDTIME - Ama Sawyer RN TRAMADOL HCL 50 MG ORAL TABLET completed 1 TAB EVERY6 HOURS NEEDED - Pam Littlejohn SOCIAL HISTORY Date Observation Value Provider drug use none Marline Dasilva passive cigarette sm freda exposure no Marline Dasilva smoking status Never smoker Marline Dasilva drug use none Marline Dasilva passive cigarette sm freda exposure no Marline Dasilva smoking status Never smoker Marline Dasilva drug use none Matheus Moreno passive cigarette sm freda exposure no Matheus Moreno smoking status Never smoker Matheus Moreno social history reviewed E&M revi ewed - no changes required Marie Lundberg MD social history E&M Marital Statu s: Smoking History: P atming has never smoked. Marie Lundberg MD smoking status Never smoker Marie ibarra MD social history reviewed E&M revi ewed - no changes required Matheus Moreno smoking status Never smoker lCaire Kortney vasquez social history reviewed E&M revi ewed - no changes required Marie Lundberg MD social history reviewed E&M revi ewed - no changes required Rebekah Owens social history E&M Marital Statu s: Smoking History: P atming has never smoked. Rebekah Owens passive cigarette sm freda exposure no Sridevi Flores smoking status Never smoker Sridevi henriquez social history reviewed E&M revi ewed - no changes required Radha Ragsdale NP passive cigarette sm freda exposure no Sridevi Flores smoking status Never smoker Sridevi henriquez social history E&M Marital Statu s: Smoking History: P ron has never smoked. Sarah Olguin social history reviewed E&M revi ewed - no changes required Sarah Olguin passive cigarette sm freda exposure no Sridevi Flores smoking status Never smoker Sridevi henriquez passive cigarette sm freda exposure no [place]'Lamine smoking status Never smoker Raven O'Lamine social history E&M Marital Statu s: Smoking History: P ron has never smoked. Sarah Olguin social history reviewed E&M revi ewed - no changes required Sarah Olguin passive cigarette sm freda exposure no Sridevi Flores smoking status Never smoker Sridevi henriquez social history E&M Marital Statu s: Smoking History: P ron has never smoked. Sarah Olguin social history reviewed E&M revi ewed - no changes required Sarah Olguin passive cigarette sm freda exposure no Alfred Reeder smoking status Never smoker Alfred Martinez passive cigarette sm freda exposure no Concha Moab smoking status Never smoker Concha Joe passive cigarette sm freda exposure no Concha Joe smoking status Never smoker Concha Joe social history E&M Marital Statu s: Smoking History: P ron has never smoked. Sarah Olguin social history reviewed E&M revi ewed - no changes required Sarah Olguin passive cigarette sm freda exposure no Cynthia Dumont smoking status Never smoker Cynthia mccray social history E&M Marital Statu s: Smoking History: P ron has never smoked. Sarah Olguin social history reviewed E&M revi ewed - no changes required Sarah Sharif passive cigarette sm freda exposure no Alfred Reeder smoking status Never smoker Alfred Martinez passive cigarette sm freda exposure no Joo Sergo smoking status Never smoker Joo Sergo social history E&M Marital Statu s: Smoking History: P ron has never smoked. Joo Sergo social history reviewed E&M revi ewed - no changes required Joo Trotter social history E&M Marital Statu s: Smoking History: P ron has never smoked. Sarah Olguin social history reviewed E&M revi ewed - no changes required Sarah Olguin passive cigarette sm freda exposure no Sridevi Riojaspatricia smoking status Never smoker Sridevi Wallis martinez smoking status Never smoker Darryn redd social history E&M Marital Statu s: Smoking History: Darren velasquez has never smoked. Darryn Luis social history reviewed E&M revi ewed - no changes required Darryn Luis passive cigarette sm freda exposure no Marine Leung social history E&M Marital Statu s: Smoking History: P ron has never smoked. Sarah Olguin social history reviewed E&M revi ewed - no changes required Stanewcarey Sharif passive cigarette sm freda exposure no Concha Joe smoking status Never smoker Concha Moab passive cigarette sm freda exposure no Concha Joe smoking status Never smoker Concha Moab social history reviewed E&M revi ewed - no changes required Marie Lundberg MD passive cigarette sm freda exposure no Marine Leung smoking status Never smoker Marine Leung social history reviewed E&M revi ewed - no changes required Hayden Kaye passive cigarette sm freda exposure no Marine Leung smoking status Never smoker Marine Leung social history reviewed E&M revi ewed - no changes required Marie Lundberg MD passive cigarette sm freda exposure no Concha Arriagaby smoking status Never smoker Concha Arriagaby social history reviewed E&M revi ewed - no changes required Marie Lundberg MD drug use none Concha Arriagaby passive cigarette sm freda exposure no Cocnha Arriagaby smoking status Never smoker Concha Joe social history E&M Marital Statu s: Smoking History: P atming has never smoked. Marie Lundberg MD drug use none Marie new MD passive cigarette sm freda exposure no Marie Lundberg MD smoking status Never smoker Marie ibarra MD social history reviewed E&M revi ewed - no changes required Marie Lundberg MD social history E&M Marital Statu s: Smoking History: P atming has never smoked. Marie Lundberg MD social history reviewed E&M revi ewed - no changes required Marie Lundberg MD smoking status Never smoker Raven Hoang social history reviewed E&M revi ewed - no changes required Marie Lundberg MD social history E&M Marital Statu s: Smoking History: P atient has never smoked. Marie Lundberg MD number of grandchildren Marie Lundberg MD smoking status Never smoker Jess Medina social history reviewed E&M revi ewed - no changes required Marie Lundberg MD drug use none Alfred hawk passive cigarette sm freda exposure no Alfred Reeder smoking status Never smoker Alfred Hardy javier social history reviewed E&M revi ewed - no changes required Gurvinder Calvo social history E&M Marital Statu s: Smoking History: P atming has never smoked. Gurvinder [place] drug use none Danyelle Almanzarann passive cigarette sm freda exposure no Danyelle Diaz smoking status Never smoker Danyelle Potter clarence social history E&M Marital Statu s: Smoking History: P ron has never smoked. Marie Lundberg MD social history reviewed E&M revi ewed - no changes required Marie Lundberg MD drug use none Danyelle Emily passive cigarette sm freda exposure no Danyelle Diaz smoking status Never smoker Danyelle Potter clarence social history reviewed E&M revi ewed - no changes required Marie Lundberg MD drug use none Alfred hawk passive cigarette sm freda exposure no Alfred Reeder smoking status Never smoker Alfred Antony herrera social history reviewed E&M revi ewed - no changes required Marie Lundberg MD drug use none Marie new MD passive cigarette sm freda exposure no Marie Lundberg MD smoking status Never smoker Marie ibarra MD social history reviewed E&M revi ewed - no changes required Marie Lundberg MD social history reviewed E&M revi ewed - no changes required Marie Lundberg MD smoking status Never smoker Pam Eron smoking/tobacco cess ation, patient education and counseling yes Marie Lundberg MD social history reviewed E&M reviewed Marie Lundberg MD social history reviewed E&M reviewed Alo Herrera MD social history reviewed E&M reviewed Marie Lundberg MD social history E&M Marital Status: Rema shepard Marie Lundberg MD drug use none Marie new MD passive cigarette sm freda exposure no Marie Lundberg MD social history reviewed E&M reviewed Marie Lundberg MD smoking status never smoker Aneatris Brow n FUNCTIONAL STATUS Date Observation Value Provider HRA, CV Assess/Plan, Angina (inactive) Management Plan continue current therapy Marie Lundberg MD Reason Fall Assessme nt not done medical contraindication Marline Dasilva HRA, CV Assess/Plan, Angina (inactive) Management Plan continue current therapy Guillermo Adler Reason Fall Assessme nt not done medical contraindication Marline Dasilva HRA, CV Assess/Plan, Angina (inactive) Management Plan continue current therapy Matheusvangie Moreon HRA, CV Assess/Plan, Angina (inactive) Management Plan continue current therapy Marie Lundberg MD HRA, CV Assess/Plan, Angina (inactive) Management Plan continue current therapy Matheus Moreno HRA, CV Assess/Plan, Angina (inactive) Management Plan continue current therapy Radha Ragsdale NP HRA, CV Assess/Plan, Angina (inactive) Management Plan continue current therapy Rebekah Owens HRA, CV Assess/Plan, Angina (inactive) Management Plan continue current therapy Radha Ragsdale NP HRA, CV Assess/Plan, Angina (inactive) Management Plan continue current therapy Taewon Sharif HRA, CV Assess/Plan, Angina (inactive) Management Plan continue current therapy Taewon Sharif HRA, CV Assess/Plan, Angina (inactive) Management Plan continue current therapy Taewon Sharif HRA, CV Assess/Plan, Angina (inactive) Management Plan continue current therapy Taewon Sharif HRA, CV Assess/Plan, Angina (inactive) Management Plan continue current therapy Taewon Sharif HRA, CV Assess/Plan, Angina (inactive) Management Plan continue current therapy Joo Trotter HRA, CV Assess/Plan, Angina (inactive) Management Plan continue current therapy Taewon Sharif HRA, CV Assess/Plan, Angina (inactive) Management Plan continue current therapy Darryn Luis HRA, CV Assess/Plan, Angina (inactive) Management Plan continue current therapy Tacaleb Sharif HRA, CV Assess/Plan, Angina (inactive) Management Plan continue current therapy Hayden Vargas HRA, CV Assess/Plan, Angina (inactive) Management Plan continue current therapy Marie Lundberg MD HRA, CV Assess/Plan, Angina (inactive) Management Plan continue current therapy Marie Lundberg MD HRA, CV Assess/Plan, Angina (inactive) Management Plan continue current therapy Marie Lundberg MD HRA, CV Assess/Plan, Angina (inactive) Management Plan continue current therapy Marie Lundberg MD HRA, CV Assess/Plan, Angina (inactive) Management Plan continue current therapy Marie Lundberg MD HRA, CV Assess/Plan, Angina (inactive) Management Plan continue current therapy Marie Lundberg MD HRA, CV Assess/Plan, Angina (inactive) Management Plan continue current therapy Marie Lundberg MD HRA, CV Assess/Plan, Angina (inactive) Management Plan continue current therapy Gurvinder [facility] MENTAL STATUS Date Observation Value Provider assessment of judgme nt and insight E&M Alert and oriented to time, place and person. Mood and affect are normal. Marie Lundberg MD assessment of judgme nt and insight E&M Alert and oriented to time, place and person. Mood and affect are normal. Marie Lundberg MD assessment of judgme nt and insight E&M Alert and oriented to time, place and person. Mood and affect are normal. Alo Herrera MD assessment of judgme nt and insight E&M Alert and oriented to time, place and person. Mood and affect are normal. Marie Lundberg MD assessment of judgme nt and insight E&M Alert and oriented to time, place and person. Mood and affect are normal. Marie Lundberg MD FAMILY HISTORY Family Member Condition Maternal Grandmother Family History of C oronary Artery Disease: Maternal Grandfather Family History of C oronary Artery Disease: Full Sister Family History Breas t Cancer: Full Brother Family History of Co ronary Artery Disease: Father Family History of Olivier dden Cardiac : Mother Family History of Co ronary Artery Disease: INSURANCE PROVIDERS Payer name Policy type / Coverage type [place] Medicare [id number] [employer] (formerly [employer]) [phone] ADVANCE DIRECTIVES Name Date 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 Given in office only Ezetimibe 10 Mg Tablet (Ezetimibe) ..... Take 1 tablet by mouth once a day Marie Lundberg MD [id number],S,seen on echoc ardiagram, mild Marie Lundberg MD [id number],C,seen on echoc ardiagram, mild Marie Lundberg MD [id number],C,T aking leqvio injection H is updated medication list for this problem includes: Leqvio 284 Mg/1.5 Ml Syringe (Inclisiran) ..... Given in office only Ezetimibe 10 Mg Tablet (Ezetimibe) ..... Take 1 tablet by mouth once a day Marie Lundberg MD [id number],C,seen on echo ardiagram, mild Saulius Toño MELÉNDEZ [id number],C,seen on echo ardiagram, mild Sanoreenus Toño MELÉNDEZ [id number],C,improved [facility] [id number],C, B P today: 135/91 P rior BP: 127/88 (11/13/2021) Labs Reviewed: C reat: 0.96 (09/27/2019) [facility] [id number],C, [facility] [id number],C, n o angina. [facility] [id number],C,P t will see if Rosuvastatin will be covered by insurance and confer back with us [facility] [id number],C,No sxs kyle y [facility] [id number],C, H is updated medication list for this problem includes: Valsartan 320 Mg Tablet (Valsartan) ..... Take 1 tablet by mouth once a day Diltiazem Hcl 90 Mg Tablet (Diltiazem hcl) ..... Take 1 tablet by mouth four times a day Sotalol 120 Mg Tablet (Sotalol) ..... Take 1 tablet by mouth twice daily [facility] [id number],C, S luc intoleratant His updated medication list for this problem includes: Ezetimibe 10 Mg Tablet (Ezetimibe) ..... Take 1 tablet by mouth once a day take 1 tablet by mouth every day [id number],C, B P today: 127/88 P rior BP: 122/86 (06/11/2021) Labs Reviewed: C reat: 0.96 (09/27/2019) His updated medication list for this problem includes: Valsartan 320 Mg Tablet (Valsartan) ..... Take 1 tablet by mouth once a day Diltiazem Hcl 90 Mg Tablet (Diltiazem hcl) ..... Take 1 tablet by mouth four times a day Sotalol 120 Mg Tablet (Sotalol) ..... Take 1 tablet by mouth twice daily [facility] [id number],C,n o events on remote check 10/24/21 [facility] [id number],C, Carotid - Mild intimal thickening and plaque are seen. [facility] [id number],C,s /p PPM H is updated medication list for this problem includes: Warfarin 5 Mg Tablet (Warfarin) ..... Take 1 1/2 tablet by mouth every evening Diltiazem Hcl 90 Mg Tablet (Diltiazem hcl) ..... Take 1 tablet by mouth four times a day Sotalol 120 Mg Tablet (Sotalol) ..... Take 1 tablet by mouth twice daily [facility] [id number],C,complaint wit h cpap [facility] [id number],C, H is updated medication list for this problem includes: Warfarin 5 Mg Tablet (Warfarin) ..... Take 1 1/2 tablet by mouth every evening [facility] [id number],C, 2 12 on recent bloodwork. Advised pt to limit sugar and honey consumption. His updated medication list for this problem includes: Ezetimibe 10 Mg Tablet (Ezetimibe) ..... Take 1 tablet by mouth once a day [facility] [id number],C,follows [facility] Radha Francoantonio OWENS [id number],S,c annot tolerate any strenous activity or mor more than 10 pounds without feeling very tired/ dizzy and SOB Marie Lundberg MD [id number],C,c annot tolerate any strenous activity or mor more than 10 pounds without feeling very tired/ dizzy and SOB Marie Lundberg MD [id number],C, H is updated medication list for this problem includes: Warfarin 5 Mg Tablet (Warfarin) ..... Take 1 tab (5mg) on tue,thur,sat,sun. 1.5 tabs (7.5mg) all other days or as directed by [facility] Marie Lundberg MD [id number],C, H is updated medication list for this problem includes: Diltiazem Hcl 90 Mg Tablet (Diltiazem hcl) ..... Take 1 tablet by mouth four times a day Sotalol 120 Mg Tablet (Sotalol) ..... Take 1 tablet by mouth twice daily Warfarin 5 Mg Tablet (Warfarin) ..... Take 1 tab (5mg) on tue,thur,sat,sun. 1.5 tabs (7.5mg) all other days or as directed by [facility] Marie Lundberg MD [id number],S, Marie esquivel MD [id number],C, n o angina. negative nuclear stress 09/2020. Rebekah Owens [id number],C, p aced rhythm c ontinues on digoxin, sotalol, diltiazem, warfarin INR with [facility]. Due to cost, will stop digoxin, take MWF until he runs out. Will continue all other medications. Rebekah Owens [id number],C,Weight loss a dvised. Rebekah Owens [id number],C, T he patient is using CPAP on a regular basis. The patient has been benefiting from therapy and should continue use. Ivory pang with pin drafter Rebekah Owens [id number],C,2 12 on recent bloodwork. Advised pt to limit sugar and honey consumption. Rebekah Rashidis [id number],C, B P today: 122/86 P rior BP: 152/80 (04/24/2021) Labs Reviewed: C reat: 0.96 (09/27/2019) His updated medication list for this problem includes: Sotalol 120 Mg Tablet (Sotalol) ..... Take 1 tablet by mouth twice daily Valsartan 320 Mg Tablet (Valsartan) ..... Take 1 tablet by mouth once a day Diltiazem Hcl 90 Mg Tablet (Diltiazem hcl) ..... Take 1 tablet by mouth four times a day Rebekah Owens [id number],C, n o angina. negative nuclear stress 09/2020. Radha Ragsdale NP [id number],C,continues to experienced MURRAY. Radha Ragsdale NP [id number],C,B P today 152/80. at home has been running 120's-130's Radha Ragsdale NP [id number],C, p aced rhythm c ontinues on digoxin, sotalol, diltiazem, warfarin INR with [facility] Radha Ragsdale NP [id number],C, T he patient is using CPAP on a regular basis. The patient has been benefiting from therapy and should continue use. Ivory pang with pin drafter Radha Ragsdale NP [id number],C, n o need to do CT so frequently Impression: Small pulmonary infract in the posterobasal segment right lower lobe related to a s ruba pulmonary embolus. 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 M andrea Richard MD His updated medication list for this problem includes: Warfarin Sodium 5 Mg Oral Tablet (Warfarin sodium) ..... Take 1.5 tabs (7.5mg) mon,wed,fri. 1 tab (5mg) all other days. Radha Ragsdale [employer] [id number],C,resolved. no recurrence Radha Francoantonio [employer] [id number],C, S tatin intoleratant His updated medication list for this problem includes: Ezetimibe 10 Mg Tablet (Ezetimibe) ..... Take 1 tablet by mouth once a day take 1 tablet by mouth every day Sarah Olguin [id number],B, B P today: 120/80 P rior BP: 132/84 (07/06/2020) Labs Reviewed: C reat: 0.96 (09/27/2019) His updated medication list for this problem includes: Valsartan 320 Mg Tablet (Valsartan) ..... Take 1 tablet by mouth once a day Sotalol 120 Mg Tablet (Sotalol) ..... Take 1 tablet by mouth once a day Diltiazem Hcl 90 Mg Tablet (Diltiazem hcl) ..... Take 1 tablet by mouth four times a day Sarah Olguin [id number],B, n o angina. negative nuclear stress 09/2020. Orders: C OMPREHENSIVE METABOLIC PANEL, W/EGFR (76635) L IPID PANEL (7600) M AGNESIUM (622) C arotid Duplex Bilateral (CPT-99059) Sarah Olguin [id number],C, O rders: C arotid Duplex Bilateral (CPT-07204) P lease see the following specialist: ophthalmology Sarah Olguin [id number],B, p aced rhythm c ontinues on digoxin, sotalol, diltiazem, warfarin INR with [facility] Sarah Olguin [id number],CMarie MD [id number],C, H is updated medication list for this problem includes: Sotalol Hcl 120 Mg Oral Tablet (Sotalol hcl) ..... Take 1 tablet by mouth every day Diltiazem Hcl 90 Mg Oral Tablet (Diltiazem hcl) ..... Take 1 tablet (90 mg total) by mouth 4 (four) times a day Digoxin 125 Mcg Oral Tablet (Digoxin) ..... Take 1 tablet by mouth every day Valsartan 320mg (Valsartan) ..... Take 1 tablet by mouth every day Marie Lundberg MD [id number],C, H is updated medication list for this problem includes: Sotalol Hcl 120 Mg Oral Tablet (Sotalol hcl) ..... Take 1 tablet by mouth every day Diltiazem Hcl 90 Mg Oral Tablet (Diltiazem hcl) ..... Take 1 tablet (90 mg total) by mouth 4 (four) times a day Warfarin Sodium 5 Mg Tablet (Warfarin sodium) ..... Take 1 tab (5mg) on tue,thur,sat,sun. 1.5 tabs (7.5mg) all other days or as directed by [facility] Marie Lundberg MD [id number],W, H is updated medication list for this problem includes: Sotalol Hcl 120 Mg Oral Tablet (Sotalol hcl) ..... Take 1 tablet by mouth every day Digoxin 125 Mcg Oral Tablet (Digoxin) ..... Take 1 tablet by mouth every day Warfarin Sodium 5 Mg Tablet (Warfarin sodium) ..... Take 1 tab (5mg) on tue,thur,sat,sun. 1.5 tabs (7.5mg) all other days or as directed by [facility] Orders: Diamond LEA (CPT-85380) Marie Lundberg MD [id number],C, O rders: Diamond LEA (CPT-05960) His updated medication list for this problem includes: Sotalol Hcl 120 Mg Oral Tablet (Sotalol hcl) ..... Take 1 tablet by mouth every day Digoxin 125 Mcg Oral Tablet (Digoxin) ..... Take 1 tablet by mouth every day Warfarin Sodium 5 Mg Tablet (Warfarin sodium) ..... Take 1 tab (5mg) on tue,thur,sat,sun. 1.5 tabs (7.5mg) all other days or as directed by [facility] Marie Lundberg MD [id number],B, Marie esquivel MD [id number],C, H is updated medication list for this problem includes: Sotalol Hcl 120 Mg Oral Tablet (Sotalol hcl) ..... Take 1 tablet by mouth every day Diltiazem Hcl 90 Mg Oral Tablet (Diltiazem hcl) ..... Take 1 tablet (90 mg total) by mouth 4 (four) times a day Warfarin Sodium 5 Mg Tablet (Warfarin sodium) ..... Take 1 tab (5mg) on thu,,thu,sun. 1.5 tabs (7.5mg) all other days or as directed by [facility] Orders: E KG (CPT-17816) 9 9213 LTD 20-29min (CPT-21876) S tress Regadenoson (CPT-11098) Marie Lundberg MD [id number],C, O rders: E KG (CPT-76629) Marie Lundberg MD Electrophysiology:mild by echo 03/2023 Marie Lundberg MD Electrophysiology:Af burden 59% His updated medication list for this problem includes: Warfarin 5 Mg Tablet (Warfarin) ..... Take 1 1/2 tablet by mouth every evening except on take 2 tabs (10mg) Sotalol 120 Mg Tablet (Sotalol) ..... Take 1 tablet by mouth twice daily Marie Lundberg MD Electrophysiology: c omplaint with cpap Marie Lundberg MD Electrophysiology: B P today: 116/82 P rior BP: 122/78 (01/20/2024) Labs Reviewed: C reat: 0.96 (09/27/2019) His updated medication list for this problem includes: Diltiazem Hcl 90 Mg Tablet (Diltiazem hcl) ..... Take 1 tablet by mouth 4 times a day Valsartan 320 Mg Tablet (Valsartan) ..... Take 1 tablet by mouth every day Sotalol 120 Mg Tablet (Sotalol) ..... Take 1 tablet by mouth twice daily Marie Lundberg MD Electrophysiology:De nies any CP or SOB. His updated medication list for this problem includes: Warfarin 5 Mg Tablet (Warfarin) ..... Take 1 1/2 tablet by mouth every evening except on take 2 tabs (10mg) Diltiazem Hcl 90 Mg Tablet (Diltiazem hcl) ..... Take 1 tablet by mouth 4 times a day Sotalol 120 Mg Tablet (Sotalol) ..... Take 1 tablet by mouth twice daily Marie Lundberg MD Electrophysiology:ex ertional rich leonardo echo in 1-2 months His updated medication list for this problem includes: Valsartan 320 Mg Tablet (Valsartan) ..... Take 1 tablet by mouth every day Sotalol 120 Mg Tablet (Sotalol) ..... Take 1 tablet by mouth twice daily Diltiazem Hcl 90 Mg Tablet (Diltiazem hcl) ..... Take 1 tablet by mouth four times a day Guillermo Adler Electrophysiology:re peat carotid bruit in 1 year Guillermo Adler Electrophysiology: H is updated medication list for this problem includes: Valsartan 320 Mg Tablet (Valsartan) ..... Take 1 tablet by mouth every day Sotalol 120 Mg Tablet (Sotalol) ..... Take 1 tablet by mouth twice daily Diltiazem Hcl 90 Mg Tablet (Diltiazem hcl) ..... Take 1 tablet by mouth four times a day BP today: 122/78 P rior BP: 132/90 (04/15/2023) Labs Reviewed: C reat: 0.96 (09/27/2019) Guillermo Adler Electrophysiology:Pa roxysmal AF, 92% burden on latest device check pacemaker implantation 10/03/2019 [employer] H is updated medication list for this problem includes: Warfarin 5 Mg Tablet (Warfarin) ..... Take 1 1/2 tablet by mouth every evening Sotalol 120 Mg Tablet (Sotalol) ..... 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 Take 1 1/2 tablet by mouth every evening Guillermo Adler Telehealth: O rders: Felipe inowilliam Telehealth (CPT-30769) Marie Lundberg MD Telehealth Marie navarro MD Telehealth:Device ch juan from 07/10/2023 showed 100% RV pacing and AT/AF burden of 100%. H is updated medication list for this problem includes: Warfarin 5 Mg Tablet (Warfarin) ..... Take 1 1/2 tablet by mouth every evening Sotalol 120 Mg Tablet (Sotalol) ..... Take 1 tablet by mouth twice daily Marie Lundberg MD Telehealth: N o recurrence of CP His updated medication list for this problem includes: Warfarin 5 Mg Tablet (Warfarin) ..... Take 1 1/2 tablet by mouth every evening Sotalol 120 Mg Tablet (Sotalol) ..... Take 1 tablet by mouth twice daily Diltiazem Hcl 90 Mg Tablet (Diltiazem hcl) ..... Take 1 tablet by mouth four times a day Marie Lundberg MD Telehealth: H is updated medication list for this problem includes: Ezetimibe 10 Mg Tablet (Ezetimibe) ..... Take 1 tablet by mouth once daily Ezetimibe 10 Mg Tablet (Ezetimibe) ..... Take 1 tablet by mouth once daily on only Leqvio 284 Mg/1.5 Ml Syringe (Inclisiran) ..... Given in office only Marie Lundberg MD Electrophysiology: B P today: 132/90 P rior BP: 146/82 (10/15/2022) Labs Reviewed: C reat: 0.96 (09/27/2019) His updated medication list for this problem includes: Valsartan 320 Mg Tablet (Valsartan) ..... Take 1 tablet by mouth once daily Sotalol 120 Mg Tablet (Sotalol) ..... Take 1 tablet by mouth twice a day Diltiazem Hcl 90 Mg Tablet (Diltiazem hcl) ..... Take 1 tablet by mouth four times a day [facility] Electrophysiology: H is updated medication list for this problem includes: Ezetimibe 10 Mg Tablet (Ezetimibe) ..... Take 1 tablet by mouth once daily Leqvio 284 Mg/1.5 Ml Syringe (Inclisiran) ..... Given in office only [facility] Electrophysiology: n o angina. [facility] Electrophysiology:co ntinues on warfarin no bleeding a dvised pt to not take dose today, continue normal dose tomorrow. - T he patient is to hold one dose of coumadin. The dosage to be resumed includes: Repeat PT/INR in 4 weeks. The patient is to continue with the same dose of coumadin. This dosage includes: the same as before except for today eat the same amount of phil lettuce each day His updated medication list for this problem includes: Warfarin 5 Mg Tablet (Warfarin) ..... Take 1 1/2 tablet by mouth every evening except on wednesdays take 2 tabs (10mg) Sotalol 120 Mg Tablet (Sotalol) ..... Take 1 tablet by mouth twice a day [facility] Electrophysiology:wi ll repeat PFT O rders: C omplete Echo (23168) 9 0814 MOD 30-39min (CPT-66499) F VC - 96014 (16705) F RC - 47146 (02504) D LCO - 35320 (78408) [facility] Electrophysiology Marie mendez MD Electrophysiology Saulius Delmis mendez MD Electrophysiology:Ta chayo leqvio injection H is updated medication list for this problem includes: Leqvio 284 Mg/1.5 Ml Syringe (Inclisiran) ..... Given in office only Ezetimibe 10 Mg Tablet (Ezetimibe) ..... Take 1 tablet by mouth once a day Marie Lundberg MD Electrophysiology:seen on echoca rdiagram, mild Saulius Kalvaitis Electrophysiology:seen on echoca rdiagram, mild Saulius Kalvaitis Electrophysiology:Ta chayo leqvio injection H is updated medication list for this problem includes: Leqvio 284 Mg/1.5 Ml Syringe (Inclisiran) ..... Given in office only Ezetimibe 10 Mg Tablet (Ezetimibe) ..... Take 1 tablet by mouth once a day Marie Lundberg MD Electrophysiology:seen on echoca rdiagram, mild Saulius Martyvaitis Electrophysiology:seen on echoca rdiagram, mild Saulius Martyvaitis Electrophysiology:improved Matheus Moreno Electrophysiology: B P today: 135/91 P rior BP: 127/88 (11/13/2021) Labs Reviewed: C reat: 0.96 (09/27/2019) Matheus Moreno Electrophysiology: [facility] Matheus Moreno Electrophysiology: n o angina. Matheus Moreno Telehealth:Pt will s ee if Rosuvastatin will be covered by insurance and confer back with us Matheus Moreno Telehealth:No sxs currently Matheus Moreno Telehealth: H is updated medication list for this problem includes: Valsartan 320 Mg Tablet (Valsartan) ..... Take 1 tablet by mouth once a day Diltiazem Hcl 90 Mg Tablet (Diltiazem hcl) ..... Take 1 tablet by mouth four times a day Sotalol 120 Mg Tablet (Sotalol) ..... Take 1 tablet by mouth twice daily Matheus Ahmireille Electrophysiology: S luc intoleratant His updated medication list for this problem includes: Ezetimibe 10 Mg Tablet (Ezetimibe) ..... Take 1 tablet by mouth once a day take 1 tablet by mouth every day Radha Ragsdale NP Electrophysiology: B P today: 127/88 P rior BP: 122/86 (06/11/2021) Labs Reviewed: C reat: 0.96 (09/27/2019) His updated medication list for this problem includes: Valsartan 320 Mg Tablet (Valsartan) ..... Take 1 tablet by mouth once a day Diltiazem Hcl 90 Mg Tablet (Diltiazem hcl) ..... Take 1 tablet by mouth four times a day Sotalol 120 Mg Tablet (Sotalol) ..... Take 1 tablet by mouth twice daily Radha Rasgdale NP Electrophysiology:no events on remote check 10/24/21 Radha Ragsdale NP Electrophysiology:2021 Carotid - Mild intimal thickening and plaque are seen. Radha Ragsdale NP Electrophysiology:s/ p PPM H is updated medication list for this problem includes: Warfarin 5 Mg Tablet (Warfarin) ..... Take 1 1/2 tablet by mouth every evening Diltiazem Hcl 90 Mg Tablet (Diltiazem hcl) ..... Take 1 tablet by mouth four times a day Sotalol 120 Mg Tablet (Sotalol) ..... Take 1 tablet by mouth twice daily Radha Ragsdlae NP Electrophysiology:complaint with cpap Radha Ragsdale NP Electrophysiology: H is updated medication list for this problem includes: Warfarin 5 Mg Tablet (Warfarin) ..... Take 1 1/2 tablet by mouth every evening Radha Ragsdale NP Electrophysiology: 2 12 on recent bloodwork. Advised pt to limit sugar and honey consumption. His updated medication list for this problem includes: Ezetimibe 10 Mg Tablet (Ezetimibe) ..... Take 1 tablet by mouth once a day Radha Ragsdale NP Electrophysiology:follows coumad in clinic Radha Ragsdale NP Telehealth:cannot to lerate any strenous activity or mor more than 10 pounds without feeling very tired/ dizzy and SOB Marie Lundberg MD Telehealth:cannot to lerate any strenous activity or mor more than 10 pounds without feeling very tired/ dizzy and SOB Marie Lundberg MD Telehealth: H is updated medication list for this problem includes: Warfarin 5 Mg Tablet (Warfarin) ..... Take 1 tab (5mg) on tue,thur,sat,sun. 1.5 tabs (7.5mg) all other days or as directed by [facility] Marie Lundberg MD Telehealth: H is updated medication list for this problem includes: Diltiazem Hcl 90 Mg Tablet (Diltiazem hcl) ..... Take 1 tablet by mouth four times a day Sotalol 120 Mg Tablet (Sotalol) ..... Take 1 tablet by mouth twice daily Warfarin 5 Mg Tablet (Warfarin) ..... Take 1 tab (5mg) on tue,thur,sat,sun. 1.5 tabs (7.5mg) all other days or as directed by reagan Lundberg MD Telehealth Marie navarro MD Electrophysiology: n o angina. negative nuclear stress 09/2020. Rebekah Owens Electrophysiology: p aced rhythm c ontinues on digoxin, sotalol, diltiazem, warfarin INR with [facility]. Due to cost, will stop digoxin, take MWF until he runs out. Will continue all other medications. Rebekah Owens Electrophysiology:Weight loss ad vised. Rebekah Owens Electrophysiology: T he patient is using CPAP on a regular basis. The patient has been benefiting from therapy and should continue use. Ivory pang with pin drafter Rebekahcamila Owens Electrophysiology:21 2 on recent bloodwork. Advised pt to limit sugar and honey consumption. Rebekah Rashidis Electrophysiology: B P today: 122/86 P rior BP: 152/80 (04/24/2021) Labs Reviewed: C reat: 0.96 (09/27/2019) His updated medication list for this problem includes: Sotalol 120 Mg Tablet (Sotalol) ..... Take 1 tablet by mouth twice daily Valsartan 320 Mg Tablet (Valsartan) ..... Take 1 tablet by mouth once a day Diltiazem Hcl 90 Mg Tablet (Diltiazem hcl) ..... Take 1 tablet by mouth four times a day Rebekah Owens Electrophysiology: n o angina. negative nuclear stress 09/2020. Radha Ragsdale NP Electrophysiology:continues to e xperienced MURRAY. Radha Ragsdale NP Electrophysiology:BP today 152/80. at home has been running 120's-130's Radha Ragsdale NP Electrophysiology: p aced rhythm c ontinues on digoxin, sotalol, diltiazem, warfarin INR with [facility] Radha Ragsdale NP Electrophysiology: T he patient is using CPAP on a regular basis. The patient has been benefiting from therapy and should continue use. Ivory pang with pin drafter Radha Ragsdale NP Electrophysiology: n o need to do CT so frequently Impression: Small pulmonary infract in the posterobasal segment right lower lobe related to a s ruba pulmonary embolus. 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 Felipe Richard MD His updated medication list for this problem includes: Warfarin Sodium 5 Mg Oral Tablet (Warfarin sodium) ..... Take 1.5 tabs (7.5mg) mon,wed,fri. 1 tab (5mg) all other days. Radha Ragsdale NP Electrophysiology:resolved. no r ecurrence Radha Ragsdale NP Electrophysiology 13 : S tatin intoleratant His updated medication list for this problem includes: Ezetimibe 10 Mg Tablet (Ezetimibe) ..... Take 1 tablet by mouth once a day take 1 tablet by mouth every day Sarah Olguin Electrophysiology 13 : B P today: 120/80 P rior BP: 132/84 (07/06/2020) Labs Reviewed: C reat: 0.96 (09/27/2019) His updated medication list for this problem includes: Valsartan 320 Mg Tablet (Valsartan) ..... Take 1 tablet by mouth once a day Sotalol 120 Mg Tablet (Sotalol) ..... Take 1 tablet by mouth once a day Diltiazem Hcl 90 Mg Tablet (Diltiazem hcl) ..... Take 1 tablet by mouth four times a day Sarah Olguin Electrophysiology 13 : n o angina. negative nuclear stress 09/2020. Orders: C OMPREHENSIVE METABOLIC PANEL, W/EGFR (58923) L IPID PANEL (7600) M AGNESIUM (622) C arotid Duplex Bilateral (CPT-57364) Sarah Olguin Electrophysiology 13 : O rders: C arotid Duplex Bilateral (CPT-84474) P lease see the following specialist: ophthalmology Sarah Sharif Electrophysiology 13 : p aced rhythm c ontinues on digoxin, sotalol, diltiazem, warfarin INR with [facility] Sarah Olguin Electrophysiology Marie mendez MD Electrophysiology: H is updated medication list for this problem includes: Sotalol Hcl 120 Mg Oral Tablet (Sotalol hcl) ..... Take 1 tablet by mouth every day Diltiazem Hcl 90 Mg Oral Tablet (Diltiazem hcl) ..... Take 1 tablet (90 mg total) by mouth 4 (four) times a day Digoxin 125 Mcg Oral Tablet (Digoxin) ..... Take 1 tablet by mouth every day Valsartan 320mg (Valsartan) ..... Take 1 tablet by mouth every day Marie Lundberg MD Electrophysiology: H is updated medication list for this problem includes: Sotalol Hcl 120 Mg Oral Tablet (Sotalol hcl) ..... Take 1 tablet by mouth every day Diltiazem Hcl 90 Mg Oral Tablet (Diltiazem hcl) ..... Take 1 tablet (90 mg total) by mouth 4 (four) times a day Warfarin Sodium 5 Mg Tablet (Warfarin sodium) ..... Take 1 tab (5mg) on tue,thur,sat,sun. 1.5 tabs (7.5mg) all other days or as directed by [facility] Marie Lundberg MD Electrophysiology: H is updated medication list for this problem includes: Sotalol Hcl 120 Mg Oral Tablet (Sotalol hcl) ..... Take 1 tablet by mouth every day Digoxin 125 Mcg Oral Tablet (Digoxin) ..... Take 1 tablet by mouth every day Warfarin Sodium 5 Mg Tablet (Warfarin sodium) ..... Take 1 tab (5mg) on tue,thur,sat,sun. 1.5 tabs (7.5mg) all other days or as directed by [facility] Orders: E VENU (CPT-02545) Marie Lundberg MD Electrophysiology: O rders: Diamond LEA (CPT-68409) His updated medication list for this problem includes: Sotalol Hcl 120 Mg Oral Tablet (Sotalol hcl) ..... Take 1 tablet by mouth every day Digoxin 125 Mcg Oral Tablet (Digoxin) ..... Take 1 tablet by mouth every day Warfarin Sodium 5 Mg Tablet (Warfarin sodium) ..... Take 1 tab (5mg) on tue,thur,sat,sun. 1.5 tabs (7.5mg) all other days or as directed by [facility] Marie Lundberg MD Electrophysiology Marie mendez MD Electrophysiology: H is updated medication list for this problem includes: Sotalol Hcl 120 Mg Oral Tablet (Sotalol hcl) ..... Take 1 tablet by mouth every day Diltiazem Hcl 90 Mg Oral Tablet (Diltiazem hcl) ..... Take 1 tablet (90 mg total) by mouth 4 (four) times a day Warfarin Sodium 5 Mg Tablet (Warfarin sodium) ..... Take 1 tab (5mg) on e,thur,thu,thu. 1.5 tabs (7.5mg) all other days or as directed by [facility] Orders: E KG (CPT-07869) 9 9213 LTD 20-29min (CPT-29548) S kaylee Regadenoson (CPT-79170) Marie Lundberg MD Electrophysiology: O rders: Diamond LEA (CPT-57797) Marie Lundberg MD Electrophysiology Fo llow up 12: B P today: 132/84 P rior BP: 130/80 (05/29/2020) Labs Reviewed: C reat: 0.96 (09/27/2019) His updated medication list for this problem includes: Sotalol Hcl 120 Mg Oral Tablet (Sotalol hcl) ..... Take 1 tablet by mouth every day Diltiazem Hcl 90 Mg Oral Tablet (Diltiazem hcl) ..... Take 1 tablet (90 mg total) by mouth 4 (four) times a day Valsartan 320mg (Valsartan) ..... Take 1 tablet by mouth every day Sarah Olguin Electrophysiology Fo llow up 12: n o need to do CT so frequently Impression: Small pulmonary infract in the posterobasal segment right lower lobe related to a s ruba pulmonary embolus. 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 M andrea Richard MD His updated medication list for this problem includes: Warfarin Sodium 5 Mg Oral Tablet (Warfarin sodium) ..... Take 1.5 tabs (7.5mg) mon,wed,fri. 1 tab (5mg) all other days. Sarah Olguin Electrophysiology Fo llow up 12:The patient is using CPAP on a regular basis. The patient has been benefiting from therapy and should continue use. Ivory pang with pin drafter Sarah Olguin Electrophysiology Fo llow up 12: 0 % burden A V paced predominantly His updated medication list for this problem includes: Sotalol Hcl 120 Mg Oral Tablet (Sotalol hcl) ..... Take 1 tablet by mouth every day Digoxin 125 Mcg Oral Tablet (Digoxin) ..... Take 1 tablet by mouth every day Warfarin Sodium 5 Mg Oral Tablet (Warfarin sodium) ..... Take 1.5 tabs (7.5mg) mon,wed,fri. 1 tab (5mg) all other days. Sarah Sharif Electrophysiology - 1 month fllowup: B P today: 130/80 P rior BP: 130/70 (04/04/2020) Labs Reviewed: C reat: 0.96 (09/27/2019) His updated medication list for this problem includes: Sotalol Hcl 120 Mg Oral Tablet (Sotalol hcl) ..... Take 1 tablet by mouth every day Diltiazem Hcl 90 Mg Oral Tablet (Diltiazem hcl) ..... Take 1 tablet (90 mg total) by mouth 4 (four) times a day Valsartan 320mg (Valsartan) ..... 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 I CM trend is within normal limits. B attery: OK N ext remote: 06/21/2020 N ext device check: 10/2020. H is updated medication list for this problem includes: Sotalol Hcl 120 Mg Oral Tablet (Sotalol hcl) ..... Take 1 tablet by mouth every day Diltiazem Hcl 90 Mg Oral Tablet (Diltiazem hcl) ..... Take 1 tablet (90 mg total) by mouth 4 (four) times a day Warfarin Sodium 5 Mg Oral Tablet (Warfarin sodium) ..... Take 1 tab (5mg) on thu,,sat. 1.5 tabs (7.5mg) all other days or as directed by [facility] Sarah Olguin Electrophysiology - 1 month fllowup: A V paced predominantly H is updated medication list for this problem includes: Sotalol Hcl 120 Mg Oral Tablet (Sotalol hcl) ..... Take 1 tablet by mouth every day Digoxin 125 Mcg Oral Tablet (Digoxin) ..... Take 1 tablet by mouth every day Warfarin Sodium 5 Mg Oral Tablet (Warfarin sodium) ..... Take 1 tab (5mg) on tue,thur,sat. 1.5 tabs (7.5mg) all other days or as directed by [facility] Sarah Olguin Electrophysiology - 1 month fllowup:Impression: Small pulmonary infract in the posterobasal segment right lower lobe related to a s ruba pulmonary embolus. 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 M andrea Richard MD His updated medication list for this problem includes: Warfarin Sodium 5 Mg Oral Tablet (Warfarin sodium) ..... Take 1 tab (5mg) on tue,thur,sat. 1.5 tabs (7.5mg) all other days or as directed by [facility] Sarah Olguin Electrophysiology: H is updated medication list for this problem includes: Warfarin Sodium 5 Mg Oral Tablet (Warfarin sodium) ..... Take 1 tab (5mg) on tue,thur,sat. 1.5 tabs (7.5mg) all other days or as directed by [facility] Orders: 9 9212 Minor 10-19min (CPT-41090) C T Cardiac with contrast (Pre-Ablation) (CPT-31651) Marie Lundberg MD Electrophysiology Marie mendez MD Electrophysiology Marie mendez MD Electrophysiology Marie mendez MD Electrophysiology: H is updated medication list for this problem includes: Sotalol Hcl 120 Mg Oral Tablet (Sotalol hcl) ..... Take 1 tablet by mouth every day Diltiazem Hcl 90 Mg Oral Tablet (Diltiazem hcl) ..... Take 1 tablet (90 mg total) by mouth 4 (four) times a day Valsartan 320 Mg Oral Tablet (Valsartan) ..... 1 tablet daily Marie Lundberg MD Electrophysiology: H is updated medication list for this problem includes: Sotalol Hcl 120 Mg Oral Tablet (Sotalol hcl) ..... Take 1 tablet by mouth every day Diltiazem Hcl 90 Mg Oral Tablet (Diltiazem hcl) ..... Take 1 tablet (90 mg total) by mouth 4 (four) times a day Digoxin 125 Mcg Oral Tablet (Digoxin) ..... Take 1 tablet by mouth every day Valsartan 320 Mg Oral Tablet (Valsartan) ..... 1 tablet daily Marie Lundberg MD Electrophysiology: O rders: E KG (CPT-00180) 9 9212 Minor 10-19min (CPT-44438) C T Cardiac with contrast (Pre-Ablation) (CPT-91991) His updated medication list for this problem includes: Sotalol Hcl 120 Mg Oral Tablet (Sotalol hcl) ..... Take 1 tablet by mouth every day Digoxin 125 Mcg Oral Tablet (Digoxin) ..... Take 1 tablet by mouth every day Warfarin Sodium 5 Mg Oral Tablet (Warfarin sodium) ..... Take 1 tab (5mg) on tue,th,sat. 1.5 tabs (7.5mg) all other days or as directed by [facility] Marie Lundberg MD Electrophysiology: H is updated medication list for this problem includes: Sotalol Hcl 120 Mg Oral Tablet (Sotalol hcl) ..... Take 1 tablet by mouth every day Diltiazem Hcl 90 Mg Oral Tablet (Diltiazem hcl) ..... Take 1 tablet (90 mg total) by mouth 4 (four) times a day Warfarin Sodium 5 Mg Oral Tablet (Warfarin sodium) ..... Take 1 tab (5mg) on tue,thur,sat. 1.5 tabs (7.5mg) all other days or as directed by [facility] Marie Lundberg MD Electrophysiology:Co umadin 7.5 mg po and thursday and 5 mg on other 3 days. H is updated medication list for this problem includes: Warfarin Sodium 5 Mg Oral Tablet (Warfarin sodium) .....Coumadin 7.5 mg po and thursday and 5 mg on other 3 days.SK Orders: E KG (CPT-30402) 9 9212 Minor 10-19min (CPT-16356) F VC - 95314 (79829) F RC - 19108 (08231) D LCO - 37776 (86777) His updated medication list for this problem includes: Warfarin Sodium 5 Mg Oral Tablet (Warfarin sodium) ..... Take 1 tab (5mg) once daily in the evening- or as directed by [facility] Sarah Olguin Electrophysiology:Co umadin 7.5 mg po and thursday and 5 mg on other 3 days. O rders: E KG (CPT-65806) S chedule Followup (*) His updated medication list for this problem includes: Sotalol Hcl 120 Mg Oral Tablet (Sotalol hcl) ..... Take 1 tablet by mouth every day Digoxin 125 Mcg Oral Tablet (Digoxin) ..... Take 1 tablet by mouth every day Warfarin Sodium 5 Mg Oral Tablet (Warfarin sodium) ..... Take 1 tab (5mg) once daily in the evening- or as directed by [facility] Sarah Olguin Electrophysiology: H is updated medication list for this problem includes: Warfarin Sodium 5 Mg Oral Tablet (Warfarin sodium) ..... Take 1 tab (5mg) once daily in the evening- or as directed by [facility] Orders: E KG (CPT-10174) 9 9212 Minor 10-19min (CPT-22631) Marie Lundberg MD Electrophysiology: O rders: E KG (CPT-30819) S chedule Followup (*) His updated medication list for this problem includes: Sotalol Hcl 120 Mg Oral Tablet (Sotalol hcl) ..... Take 1 tablet by mouth every day Digoxin 125 Mcg Oral Tablet (Digoxin) ..... Take 1 tablet by mouth every day Warfarin Sodium 5 Mg Oral Tablet (Warfarin sodium) ..... Take 1 tab (5mg) once daily in the evening- or as directed by [facility] Marie Lundberg MD Electrophysiology : N eed to get CPAP machine Sarah Olguin Electrophysiology :i n sinus T he following medications were removed from the medication list: Amiodarone Hcl 200 Mg Oral Tablet (Amiodarone hcl) ..... Take one tablet twice daily His updated medication list for this problem includes: Sotalol Hcl 120 Mg Oral Tablet (Sotalol hcl) ..... Take 1 tablet by mouth every day Digoxin 125 Mcg Oral Tablet (Digoxin) ..... Take 1 tablet by mouth every day Warfarin Sodium 5 Mg Oral Tablet (Warfarin sodium) ..... One tab on 2 tab on [facility] Electrophysiology :a cute PE in RLL without cor pulmonale. was seen at [facility]. being treated with coumadin and requiring oxygnn. c ontinue coumadin H is updated medication list for this problem includes: Warfarin Sodium 5 Mg Oral Tablet (Warfarin sodium) ..... One tab [facility] 02[facility] -: H is updated medication list for this problem includes: Lasix 20 Mg Oral Tablet (Furosemide) ..... One tab by mouth daily Cardizem Cd 240 Mg Oral Capsule Extended Release 24 Hour (Diltiazem hcl coated beads) ..... Take one capsule nightly Valsartan 320 Mg Oral Tablet (Valsartan) ..... 1 tablet daily Marie Lundberg MD Electrophysiology - Marie esquivel MD Electrophysiology - Marie esquivel MD Electrophysiology -: s/p EP study and a. fib ablation, perimitral flutter ablation could not be completed due to proximity of the esophagus i n sinus today Previously offered to try TIKOSYN with admission to the hospital for 3 days. will need that medication forever - did not want to take due to high cost half-way and multiple medication interaction N ot a good candidate for terminal manager amiodarone treatment Currently on Amiodarone, Diltiazem, and Magnesium. His updated medication list for this problem includes: Amiodarone Hcl 200 Mg Oral Tablet (Amiodarone hcl) ..... Take one tablet twice daily Orders: E KG (CPT-28748) 9 9213 LTD. Complex (CPT-43142) Marie Lundberg MD Electrophysiology : F milagros to stay in sinus rhythm after previous cardioversion. P reviously offered to try TIKOSYN with admission to the hospital for 3 days. will need that medication forever - did not want to take due to high cost terminal manager and multiple medication interaction N ot a good candidate for half-way amiodarone treatment - check PFTs C urrently on Amiodarone, Diltiazem, and Magnesium. C omplains of palpitations at rest, but not during exertion. Plan to go back off amio in january and restart sotalol Orders: E KG (CPT-81324) 9 9212 Minor (CPT-41620) C ardioversion - [facility] (CPT-45793) His updated medication list for this problem includes: Amiodarone Hcl 200 Mg Oral Tablet (Amiodarone hcl) ..... One a day Sarah Olguin Electrophysiology : s /p dc pm implantation 10/04/2019 for SSS, bradycardia, and fatigue. Sarah Olguin Electrophysiology : B P today: 108/82 P rior BP: 158/88 (11/09/2019) Labs Reviewed: C reat: 0.96 (09/27/2019) His updated medication list for this problem includes: Cardizem Cd 240 Mg Oral Capsule Extended Release 24 Hour (Diltiazem hcl coated beads) ..... Take one capsule daily Valsartan 320 Mg Oral Tablet (Valsartan) ..... 1 tablet daily Sarah Olguin Electrophysiology :F milagros to stay in sinus rhythm after previous cardioversion. O ffered to try TIKOSYN with admission to the hospital for 3 days. will need that medication forever - did not want to take due to high cost terminal manager and multiple medication interaction N ot a good candidate for terminal manager amiodarone treatment - check PFTs C urrently on Amiodarone, Diltiazem, and Magnesium. Plan to go back off amio in january and restart sotalol C omplains of palpitations at rest, but not during exertion. C heck home sleep, does not sleep well. O rders: E KG (CPT-67417) S lee Study Home (CPT-57075) F VC - 86924 (87466) F RC - 71147 (59762) D LCO - 35975 (57416) Marie Lundberg MD Electrophysiology : H is updated medication list for this problem includes: Cardizem Cd 240 Mg Oral Capsule Extended Release 24 Hour (Diltiazem hcl coated beads) ..... Take one capsule daily Amiodarone Hcl 200 Mg Oral Tablet (Amiodarone hcl) ..... Take one tablet 3 times daily for 3 weeks Marie Lundberg MD Electrophysiology :Check home [facility] study. Marie Lundberg MD Electrophysiology :F milagros to stay in sinus rhythm after previous cardioversion. O ffered to try TIKOSYN with admission to the hospital for 3 days. will need that medication forever - did not want to take due to high cost terminal manager and multiple medication interaction N ot a good candidate for terminal manager amiodarone treatment - check PFTs C urrently on Amiodarone, Diltiazem, and Magnesium. Complains of palpitations at rest, but not during exertion. C heck home sleep, does not sleep well. Darryn Luis Electrophysiology : B P today: 158/88 P rior BP: 130/80 (10/19/2019) Labs Reviewed: C reat: 0.96 (09/27/2019) His updated medication list for this problem includes: Cardizem Cd 240 Mg Oral Capsule Extended Release 24 Hour (Diltiazem hcl coated beads) ..... Take one capsule daily Valsartan 320 Mg Oral Tablet (Valsartan) ..... 1 tablet daily Darryn Luis Electrophysiology :s /p dc pm implantation 10/04/2019 for SSS, bradycardia, and fatigue. Darryn Luis Electrophysiology :F milagros to stay in sinus rhythm after previous cardioversion. O ffered to try TIKOSYN with admission to the hospital for 3 days. will need that medication forever - did not want to take due to high cost half-way and multiple medication interaction N ot a good candidate for terminal manager amiodarone treatment C urrently on Amiodarone, Diltiazem, and Magnesium. C omplains of palpitations at rest, but not during exertion. C heck home sleep, does not sleep well. Darryn Haastramaine Electrophysiology :Check home sl eep study. Darryn Saminaros Electrophysiology Darryn Lambr os Electrophysiology [facility]ryn [facility] - completed : B P today: 130/80 P rior BP: 140/68 (10/12/2019) Labs Reviewed: C reat: 0.96 (09/27/2019) His updated medication list for this problem includes: Valsartan 320 Mg Oral Tablet (Valsartan) ..... 1 tablet daily Sotalol 80 Mg Tablet (Sotalol hcl) ..... Take 1 tablet by mouth twice a day Carvedilol 6.25 Mg Tablet (Carvedilol) ..... Take 1 tablet by mouth twice a day Stancarey Sharif Electrophysiology - completed : s /p dc pm implantation 10/04/2019 failed to stay in sinus rhythm after previous cardioversion. O ffered to try TIKOSYN with admission to the hospital for 3 days. will need that medication forever - did not want to take due to high cost terminal manager and multiple medication interaction N ot a good candidate for half-way amiodarone treatment P atient called and wants to proceed with permanent pacemaker implantation: indications symptomatic bradycardia, SSS, and fatigue. Stancarey Olguin Electrophysiology - completed : O rders: C ardioversion - [facility] (CPT-67350) His updated medication list for this problem includes: Sotalol 80 Mg Tablet (Sotalol hcl) ..... Take 1 tablet by mouth twice a day Carvedilol 6.25 Mg Tablet (Carvedilol) ..... Take 1 tablet by mouth twice a day Stancarey Olguin Electrophysiology - do not left arm above the shoulder for 3 mon: H is updated medication list for this problem includes: Valsartan 320 Mg Oral Tablet (Valsartan) ..... 1 tablet daily Sotalol 80 Mg Tablet (Sotalol hcl) ..... Take 1 tablet by mouth twice a day Carvedilol 6.25 Mg Tablet (Carvedilol) ..... Take 1 tablet by mouth twice a day Marie Lundberg MD Electrophysiology - do not left arm above the shoulder for 3 mon: O rders: Jayde esparza No Charge (CPT-81940) His updated medication list for this problem includes: Valsartan 320 Mg Oral Tablet (Valsartan) ..... 1 tablet daily Sotalol 80 Mg Tablet (Sotalol hcl) ..... Take 1 tablet by mouth twice a day Carvedilol 6.25 Mg Tablet (Carvedilol) ..... Take 1 tablet by mouth twice a day Marie Lundberg MD Electrophysiology - do not left arm above the shoulder for 3 mon:cardioversion in 1 month. H is updated medication list for this problem includes: Sotalol 80 Mg Tablet (Sotalol hcl) ..... Take 1 tablet by mouth twice a day Carvedilol 6.25 Mg Tablet (Carvedilol) ..... Take 1 tablet by mouth twice a day Orders: Jayde esparza No Charge (CPT-07402) Marie Lundberg MD Electrophysiology - do not left arm above the shoulder for 3 mon: H is updated medication list for this problem includes: Sotalol 80 Mg Tablet (Sotalol hcl) ..... Take 1 tablet by mouth twice a day Carvedilol 6.25 Mg Tablet (Carvedilol) ..... Take 1 tablet by mouth twice a day Marie Lundberg MD Electrophysiology - do not left arm above the shoulder for 3 mon: O rders: Jayde esparza No Charge (CPT-81241) Marie Lundberg MD Cardiology - please schedule for pacmeker: H is updated medication list for this problem includes: Sotalol 80 Mg Tablet (Sotalol hcl) ..... Take 1 tablet by mouth twice a day Carvedilol 6.25 Mg Tablet (Carvedilol) ..... Take 1 tablet by mouth twice a day Orders: Darren horton Dual Chamber - [facility] (*) Marie Lundberg MD Cardiology - please schedule for pacnaye Lundberg MD Cardiology - please schedule for pacmeker:failed to stay in sinus rhythm after the cardioversion. O ffered to try TIKOSYN with admission to the hospital for 3 days. will need that medication forever - did not want to take due to high cost terminal manager and multiple medication interaction A nother option place permanent placement N ot a good candidate for terminal manager amiodarone treatment & #13;Patient called and wants to proceed with permanent pacemaker implantation: indications symptomatic bradycardia, SSS, fand atigue. Orders: P clifford Dual Chamber - [facility] (*) Marie Lundberg MD Cardiology - please schedule for pacmeker:failed to stay in sinus rhythm after the cardioversion. O ffered to try TIKOSYN with admission to the hospital for 3 days. will need that medication forever - did not want to take due to high cost terminal manager and multiple medication interaction A nother option place permanent placement N ot a good candidate for half-way amiodarone treatment & #13;Patient called and wants to proceed with permanent pacemaker implantation: indications symptomatic bradycardia, SSS, fand atigue. His updated medication list for this problem includes: Sotalol 80 Mg Tablet (Sotalol hcl) ..... Take 1 tablet by mouth twice a day Carvedilol 6.25 Mg Tablet (Carvedilol) ..... Take 1 tablet by mouth twice a day Orders: 9 9212 Minor (CPT-15505) E KG (CPT-85089) Darren horton Dual Chamber - [facility] (*) Marie Lundberg MD Cardiology - please schedule for pacmerubin: H is updated medication list for this problem includes: Valsartan 320 Mg Oral Tablet (Valsartan) ..... 1 tablet daily Sotalol 80 Mg Tablet (Sotalol hcl) ..... Take 1 tablet by mouth twice a day Carvedilol 6.25 Mg Tablet (Carvedilol) ..... Take 1 tablet by mouth twice a day Orders: 9 9212 Minor (CPT-35106) Marie Lundberg MD Cardiology - please schedule for courtney Lundberg MD Cardiology - please schedule for courtney Lundberg MD Cardiology - please schedule for pacmeker:failed to stay in sinus rhythm after the cardioversion. O ffered to try TIKOSYN with admission to the hospital for 3 days. will need that medication forever. A nother option place permanent placement N ot a good candidate for terminal manager amiodarone treatment His updated medication list for this problem includes: Sotalol 80 Mg Tablet (Sotalol hcl) ..... Take 1 tablet by mouth twice a day Carvedilol 6.25 Mg Tablet (Carvedilol) ..... Take 1 tablet by mouth twice a day Marie Lundberg MD Cardiology: B P today: 148/97 P rior BP: 153/91 (02/23/2019) Labs Reviewed: C reat: 1.2 (05/05/2015) The following medications were removed from the medication list: Cozaar 100 Mg Oral Tablet (Losartan potassium) ..... One tab. daily at bed time ( dose increased from 50 to 100 mg) His updated medication list for this problem includes: Valsartan 320 Mg Oral Tablet (Valsartan) ..... 1 tablet daily Sotalol 80 Mg Tablet (Sotalol hcl) ..... Take 1 tablet by mouth twice a day Carvedilol 6.25 Mg Tablet (Carvedilol) ..... Take 1 tablet by mouth twice a day Hayden Kaye Cardiology:will get PFTs today T he following medications were removed from the medication list: Cozaar 100 Mg Oral Tablet (Losartan potassium) ..... One tab. daily at bed time ( dose increased from 50 to 100 mg) His updated medication list for this problem includes: Valsartan 320 Mg Oral Tablet (Valsartan) ..... 1 tablet daily Sotalol 80 Mg Tablet (Sotalol hcl) ..... Take 1 tablet by mouth twice a day Carvedilol 6.25 Mg Tablet (Carvedilol) ..... Take 1 tablet by mouth twice a day Orders: M obile Cardiac Tele (CPT-06933) F VC - 96591 (40055) F RC - 09844 (85594) D O - 95781 (85618) C ardioversion - [facility] ([facility]-76408) [facility] Cardiology: H is updated medication list for this problem includes: Sotalol 80 Mg Tablet (Sotalol hcl) ..... Take 1 tablet by mouth twice a day Carvedilol 6.25 Mg Tablet (Carvedilol) ..... Take 1 tablet by mouth twice a day Orders: M obile Cardiac Tele (CPT-42491) F VC - 95541 (50370) F RC - 41224 (68779) D O - 85626 (06416) C ardioversion - SL ([facility]-57399) [facility] Cardiology:in afib o n EKG today T he patient is recommended to have cardioversion. The risks and benefits have been discussed with the patient in this shared decision making encounter. H is updated medication list for this problem includes: Sotalol 80 Mg Tablet (Sotalol hcl) ..... Take 1 tablet by mouth twice a day Carvedilol 6.25 Mg Tablet (Carvedilol) ..... Take 1 tablet by mouth twice a day Orders: E KG (CPT-29701) obile Cardiac Tele (CPT-21915) C ardioversion - SL (CPT-37505) [facility] Electrophysiology: H is updated medication list for this problem includes: Valsartan 320 Mg Oral Tablet (Valsartan) ..... 1 tablet daily Sotalol 80 Mg Tablet (Sotalol hcl) ..... Take 1 tablet by mouth twice a day Cozaar 100 Mg Oral Tablet (Losartan potassium) ..... One tab. daily at bed time ( dose increased from 50 to 100 mg) Carvedilol 6.25 Mg Tablet (Carvedilol) ..... Take 1 tablet by mouth twice a day Orders: C arotid Duplex Bilateral (CPT-56531) A jermain Duplex Ultrasound (CPT-81442) 9 9214 MOD Complex (CPT-02432) M obile Cardiac Tele (CPT-81069) [facility] Electrophysiology: O rders: E KG (CPT-83462) C arotid Duplex Bilateral (CPT-44712) A jermain Duplex Ultrasound (CPT-00438) 9 9214 MOD Complex (CPT-89982) M obile Cardiac Tele (CPT-30621) His updated medication list for this problem includes: Sotalol 80 Mg Tablet (Sotalol hcl) ..... Take 1 tablet by mouth twice a day Carvedilol 6.25 Mg Tablet (Carvedilol) ..... Take 1 tablet by mouth twice a day [facility] Electrophysiology: B P today: 118/70 P rior BP: 140/90 (08/18/2018) Labs Reviewed: C reat: 1.2 (05/05/2015) His updated medication list for this problem includes: Valsartan 320 Mg Oral Tablet (Valsartan) ..... 1 tablet daily Sotalol 80 Mg Tablet (Sotalol hcl) ..... Take 1 tablet by mouth twice a day Cozaar 100 Mg Oral Tablet (Losartan potassium) ..... One tab. daily at bed time ( dose increased from 50 to 100 mg) Carvedilol 6.25 Mg Tablet (Carvedilol) ..... Take 1 tablet by mouth twice a day [facility] Electrophysiology: H is updated medication list for this problem includes: Sotalol 80 Mg Tablet (Sotalol hcl) ..... Take 1 tablet by mouth twice a day Carvedilol 6.25 Mg Tablet (Carvedilol) ..... Take 1 tablet by mouth twice a day Orders: C arotid Duplex Bilateral (CPT-57437) A jermain Duplex Ultrasound (CPT-88029) 9 9214 MOD Complex (CPT-41974) M obile Cardiac Tele (CPT-55122) Hayden Vargas Electrophysiology Marie mendez MD Electrophysiology: H is updated medication list for this problem includes: Sotalol Hcl 80 Mg Oral Tablet (Sotalol hcl) ..... One tab. twice daily Carvedilol 6.25 Mg Oral Tablet (Carvedilol) ..... One tab. twice daily Marie Lundberg MD Electrophysiology: H is updated medication list for this problem includes: Sotalol Hcl 80 Mg Oral Tablet (Sotalol hcl) ..... One tab. twice daily Cozaar 100 Mg Oral Tablet (Losartan potassium) ..... One tab. daily at bed time ( dose increased from 50 to 100 mg) Carvedilol 6.25 Mg Oral Tablet (Carvedilol) ..... One tab. twice daily Marie Lundberg MD Electrophysiology: B P today: 140/90 P rior BP: 159/103 (02/10/2018) Labs Reviewed: C reat: 1.2 (05/05/2015) His updated medication list for this problem includes: Sotalol Hcl 80 Mg Oral Tablet (Sotalol hcl) ..... One tab. twice daily Cozaar 100 Mg Oral Tablet (Losartan potassium) ..... One tab. daily at bed time ( dose increased from 50 to 100 mg) Carvedilol 6.25 Mg Oral Tablet (Carvedilol) ..... One tab. twice daily Marie Lundberg MD Electrophysiology: C BC and CMP were good, and LDL 108 on 05/21/2018 blood work. Stress echo in 2018 1showed: No Echocardiographic evidence of ischemia. contractility improved with exercise. 2. Abnormal post exercise ECG consistent with ischemia. No Echocardiographic evidence of ischemia. On the basis of normal wall motion, the ST segment response with exercise is considered falsely positive for ischemia. 3. PVCs are present with exercice. Marie Lundberg MD Electrophysiology: C BC and CMP were good, and LDL 108 on 05/21/2018 blood work. Stress echo in 2018 1showed: No Echocardiographic evidence of ischemia. contractility improved with exercise. 2. Abnormal post exercise ECG consistent with ischemia. No Echocardiographic evidence of ischemia. On the basis of normal wall motion, the ST segment response with exercise is considered falsely positive for ischemia. 3. PVCs are present with exercice. O rders: E KG (CPT-19866) His updated medication list for this problem includes: Sotalol Hcl 80 Mg Oral Tablet (Sotalol hcl) ..... One tab. twice daily Carvedilol 6.25 Mg Oral Tablet (Carvedilol) ..... One tab. twice daily Marie Lundberg MD Electrophysiology: B P today: 159/103 P rior BP: 122/80 (03/04/2017) Labs Reviewed: C reat: 1.2 (05/05/2015) His updated medication list for this problem includes: Sotalol Hcl 80 Mg Oral Tablet (Sotalol hcl) ..... One tab. twice daily Cozaar 100 Mg Oral Tablet (Losartan potassium) ..... One tab. daily at bed time ( dose increased from 50 to 100 mg) Carvedilol 6.25 Mg Oral Tablet (Carvedilol) ..... One tab. twice daily Marie Lundberg MD Electrophysiology: I ntermittent episodes noted on Telesentry 01/2018, lasting seconds to minutes. R emains in sinus rhythm on EKG today. Orders: E KG (CPT-01429) 9 9214 MOD Complex (CPT-40687) S chedule Followup (*) His updated medication list for this problem includes: Sotalol Hcl 80 Mg Oral Tablet (Sotalol hcl) ..... One tab. twice daily Carvedilol 6.25 Mg Oral Tablet (Carvedilol) ..... One tab. twice daily Marie Lundberg MD Electrophysiology: C [facility] ER visit on 02/02/18 for CP. Workup for ischemia was negative. Negative troponins. Patient was Dx with indigestion and Rx Protonix. Will check stress echo to be done as soon as possible. Orders: S tress Echo (CPT-03900) 9 9214 MOD Complex (CPT-90601) S chedule Followup (*) Marie Lundberg MD Electrophysiology Marie mendez MD Electrophysiology:Managed by dilan maa elizabeth. Marie Lundberg MD Electrophysiology: B P today: 122/80 P rior BP: 112/74 (01/28/2017) Labs Reviewed: C reat: 1.2 (05/05/2015) Marie Lundberg MD Electrophysiology: H is updated medication list for this problem includes: Sotalol Hcl 80 Mg Oral Tablet (Sotalol hcl) ..... One tab. twice daily Aspirin Adult Low Dose 81 Mg Oral Tablet Delayed Release (Aspirin) ..... One tab by mouth daily Carvedilol 6.25 Mg Oral Tablet (Carvedilol) ..... One tab. twice daily Orders: E KG (CPT-10140) Marie Lundberg MD Electrophysiology Marie mendez MD Electrophysiology Marie mendez MD Electrophysiology: B P today: 112/74 P rior BP: 140/80 (01/13/2017) Labs Reviewed: C reat: 1.2 (05/05/2015) Marie Lundberg MD Electrophysiology:St art Pradaxa 150mg take one tablet twice daily S tart Sotalol 80mg take one tablet twice daily S tart Magnesium Oxide 400mg take one tablet twice daily D ecrease Coreg 6.25mg - to half tablet twice daily W ill stop Coreg in the future Marie Lundberg MD Cardiology: O rders: C omplete Echo (CPT-44407) C arotid Duplex Bilateral (CPT-33828) Marie Lundberg MD Cardiology: H is updated medication list for this problem includes: Cozaar 50 Mg Oral Tablet (Losartan potassium) ..... One tab daily at bedtime Aspirin Adult Low Dose 81 Mg Oral Tablet Delayed Release (Aspirin) ..... One tab by mouth daily Carvedilol 6.25 Mg Oral Tablet (Carvedilol) ..... One tab. twice daily BP today: 140/80 P rior BP: 151/90 (12/28/2015) Labs Reviewed: C reat: 1.2 (05/05/2015) Marie Lundberg MD Cardiology Marie navarro MD Cardiology:BP today: 151/90 P rior BP: 141/82 (08/10/2015) His updated medication list for this problem includes: Cozaar 50 Mg Tabs (Losartan potassium) ..... One tab daily at bedtime Aspirin Adult Low Dose 81 Mg Oral Tbec (Aspirin) ..... One tab by mouth daily Carvedilol 6.25 Mg Tabs (Carvedilol) ..... One tab. twice daily Marie Lundberg MD Cardiology:No eviden ce of DVT on last venous doppler done in April 2015. Marie Lundberg MD Cardiology:Stable. N o chest pain or SOB. On ASA, ARB, BB. Marie Lundberg MD Cardiology faxed 08/17/15 Marie Lundberg MD Cardiology faxed 08/17/15 Marie Lundberg MD Cardiology faxed 05/25/15 Marie Lundberg MD Cardiology faxed 05/10 06/24:BP today: 136/91 P rior BP: 140/100 (02/20/2015) His updated medication list for this problem includes: Cozaar 50 Mg Tabs (Losartan potassium) ..... One tab daily at bedtime Aspirin 81 Mg Tabs (Aspirin) ..... One tab. daily Carvedilol 6.25 Mg Tabs (Carvedilol) ..... One tab. twice daily Marie Lundberg MD Cardiology faxed 05/10 06/24:Orders: A rterial Duplex Bi-Lower EX (CPT-55805) C OMPREHENSIVE METABOLIC PANEL W/EGFR (08841) C BC (INCLUDES DIFF/PLT) (6399) S ed Rate (793906) U harsh Acid (C09509M,D773350) V enous Doppler Bilateral LE (20926) U HARSH ACID (905) S ED RATE BY MODIFIED WESTERGREN (809) Marie Lundberg MD Cardiology faxed 05/10 06/24:Orders: A rterial Duplex Bi-Lower EX (CPT-00395) C OMPREHENSIVE METABOLIC PANEL W/EGFR (38279) C BC (INCLUDES DIFF/PLT) (6399) S ed Rate (669942) U harsh Acid (O26445W,G944141) V enous Doppler Bilateral LE (83508) U HARSH ACID (905) S ED RATE BY MODIFIED WESTERGREN (809) Marie Lundberg MD Cardiology:Patient i s one week post cath and is doing very well. Tolerating his medication without difficulty. Will release to return to work on the Feb. Will continue his ASA, Coreg and IMdur as prescribed. H is updated medication list for this problem includes: Isosorbide Mononitrate Er 30 Mg Oral [id number] (Isosorbide mononitrate) ..... One tablet each day Aspirin 81 Mg Tabs (Aspirin) ..... One tab. daily Carvedilol 6.25 Mg Tabs (Carvedilol) ..... One tab. twice daily Marie Lundberg MD Cardiology: H is updated medication list for this problem includes: Isosorbide Mononitrate Er 30 Mg Oral [id number] (Isosorbide mononitrate) ..... One tablet each day Aspirin 81 Mg Tabs (Aspirin) ..... One tab. daily Carvedilol 6.25 Mg Tabs (Carvedilol) ..... One tab. twice daily Orders: 9 9213 LTD. Complex (CPT-60566) Marie Lundberg MD Cardiology:Patient i s one week post cath and is doing very well. Tolerating his medication without difficulty. Will release to return to work on the Feb. Will continue his ASA, Coreg and IMdur as prescribed. Christi Valiente NP Cardiology faxed 02/15/15 Marie Lundberg MD Cardiology faxed 02/15/15 Marie Lundberg MD Cardiology faxed 02/15: H is updated medication list for this problem includes: Aspirin 81 Mg Tabs (Aspirin) ..... One tab. daily Carvedilol 6.25 Mg Tabs (Carvedilol) ..... One tab. twice daily Marie Lundberg MD Cardiology faxed 02/15: O rders: E KG (CPT-91822) C omplete Echo (CPT-32640) S TR - Adenosine (48304) Marie Lundberg MD FU faxed 08/03/14 080 8: H is updated medication list for this problem includes: Cozaar 50 Mg Tabs (Losartan potassium) ..... One tab daily at bedtime Aspirin 81 Mg Tabs (Aspirin) ..... One tab. daily Carvedilol 6.25 Mg Tabs (Carvedilol) ..... One tab. twice daily BP today: 140/92 P rior BP: 149/90 (02/20/2014) Marie Lundberg MD FU faxed 08/03/14 0808 Marie santana MD FU faxed 08/03/14 080 8: O rders: E KG (CPT-94177) The following medications were removed from the medication list: Nitrolingual 0.4 Mg/spray Soln (Nitroglycerin) ..... One spray as needed for chest discomfort His updated medication list for this problem includes: Aspirin 81 Mg Tabs (Aspirin) ..... One tab. daily Carvedilol 6.25 Mg Tabs (Carvedilol) ..... One tab. twice daily Marie Lundberg MD follow up,echo faxed 02/21/14 [phone] 5 Marie Lundberg MD follow up,echo faxed 02/21/14 0815: O rders: V enous Doppler Bilateral LE - Standing (CPT-77434) Marie Lundberg MD follow up,echo faxed 02/21/14 0815:continue plavix until 2014. E CHO shows good LV function. His updated medication list for this problem includes: Aspirin 81 Mg Tabs (Aspirin) ..... One tab. daily Atorvastatin Calcium 20 Mg Tabs (Atorvastatin calcium) ..... One tab at bedtime Carvedilol 6.25 Mg Tabs (Carvedilol) ..... One tab. twice daily Lisinopril 20 Mg Tabs (Lisinopril) ..... 20 mg in am and 10 mg at night Clopidogrel Bisulfate 75 Mg Tabs (Clopidogrel bisulfate) ..... One tab daily Nitrolingual 0.4 Mg/spray Soln (Nitroglycerin) ..... One spray as needed for chest discomfort Orders: E KG (CPT-31946) C OMPREHENSIVE METABOLIC PANEL W/EGFR (13222) C BC (H/H, RBC, INDICES, WBC, PLT) (1759) L IPID PANEL (7600) Marie Lundberg MD follow up,echo faxed 02/21/14 0815: O rders: V enous Doppler Bilateral LE - Standing (CPT-87601) Marie Lundberg MD follow up: H is updated medication list for this problem includes: Atorvastatin Calcium 20 Mg Tabs (Atorvastatin calcium) ..... One tab at bedtime BP today: 144/96 Prior BP: 134/90 (06/22/2013) Alo Herrera MD follow up: H is updated medication list for this problem includes: Carvedilol 6.25 Mg Tabs (Carvedilol) ..... One tab. twice daily Lisinopril 20 Mg Tabs (Lisinopril) ..... 20 mg in am and 10 mg at night BP today: 144/96 P rior BP: 134/90 (06/22/2013) Alo Herrera MD follow up: H is updated medication list for this problem includes: Atorvastatin Calcium 20 Mg Tabs (Atorvastatin calcium) ..... One tab at bedtime Carvedilol 6.25 Mg Tabs (Carvedilol) ..... One tab. twice daily Lisinopril 20 Mg Tabs (Lisinopril) ..... 20 mg in am and 10 mg at night Clopidogrel Bisulfate 75 Mg Tabs (Clopidogrel bisulfate) ..... One tab daily Nitrolingual 0.4 Mg/spray Soln (Nitroglycerin) ..... One spray as needed for chest discomfort BP today: 144/96 Prior BP: 134/90 (06/22/2013) C ardiac Cath: [id number] myocardial infarction, the inferior apical wall. C oronary artery disease with 90% stenosis of a distal RPL branch, which was deployed in the inferior apical wall of the left ventricle i nfarct-related artery. No other significant obstructive disease. - (06/05/2013) C ardiac Cath Comments: Successful PTCA and 2.25 x 26mm Integrity bare metal stent distal RPL branch with good angiographic result. - (06/05/2013) Alo Herrera MD follow up: O rders: E KG (CPT-83607) Alo Herrera MD Date Name Carotid Duplex Bilat eral Complete Echo LIPID PANEL DLCO - 91772 FRC - 28140 FVC - 04954 Complete Echo Carotid Duplex Bilat eral Complete Echo LIPID PANEL LIPID PANEL LIPID PANEL Aorta Duplex Ultraso und Vitamin D, 25-Hydrox y MAGNESIUM TSH, free T4, total T3 CBC (INCLUDES DIFF/P LT) HEMOGLOBIN A1c LIPID PANEL COMPREHENSIVE METABO LIC PANEL, W/EGFR Complete Echo Carotid Duplex Bilat eral MAGNESIUM LIPID PANEL COMPREHENSIVE METABO LIC PANEL, W/EGFR CBC (INCLUDES DIFF/P LT) TSH, free T4, total T3 LIPID PANEL COMPREHENSIVE METABO LIC PANEL, W/EGFR Stress Regadenoson DLCO - 36633 FRC - 98201 FVC - 62265 Venous Doppler Bilat eral LE Venous Doppler Unila teral LLE CT Angio Chest (PE P rotocol) CT Chest with,withou t contrast INR Strip CT Cardiac with cont rast (Pre-Ablation) DLCO - 53656 FRC - 02832 FVC - 93420 PROTHROMBIN TIME WIT H INR X-Ray, Chest - Routi ne CBC (INCLUDES DIFF/P LT) BASIC METABOLIC PANE L W/EGFR Partial Thromboplast in Time, Activated PROTHROMBIN TIME WIT H INR CT Cardiac with cont rast (Pre-Ablation) ABLATION w/ Anesthes ia Cardioversion - [facility] DLCO - 89296 FRC - 40958 FVC - 06697 Sleep Study Home Cardioversion - [facility] COVID19 nasal swab ( LC) URINALYSIS, COMPLETE W/REFLEX TO CULTURE Partial Thromboplast in Time, Activated PROTHROMBIN TIME WIT H INR COMPREHENSIVE METABO LIC PANEL, W/EGFR CBC (INCLUDES DIFF/P LT) Pacemaker Dual Chamb er - [facility] Pacemaker Dual Chamb er - [facility] EKG Carotid Duplex Bilat eral PARTIAL THROMBOPLAST IN TIME, ACTIVATED URINALYSIS, COMPLETE W/REFLEX TO CULTURE COMPREHENSIVE METABO LIC PANEL W/EGFR PROTHROMBIN TIME WIT H INR LIPID PANEL CBC (INCLUDES DIFF/P LT) Cardioversion - [facility] DLCO - 25829 FRC - 27341 FVC - 56173 Mobile Cardiac Tele Mobile Cardiac Tele Aorta Duplex Ultraso und Carotid Duplex Bilat eral Complete Echo Complete Echo Stress Echo Mobile Cardiac Tele MAGNESIUM COMPREHENSIVE METABO LIC PANEL, W/EGFR Complete Echo DLCO - 16688 FRC - 81202 FVC - 92807 DLCO - 76537 FRC - 77643 FVC - 25599 Venous Doppler Bilat eral LE Mobile Cardiac Tele Carotid Duplex Bilat eral Complete Echo Aortic Abdominal Ult rasound Carotid Duplex Bilat eral Complete Echo SED RATE BY MODIFIED ELIER URIC ACID Venous Doppler Bilat eral LE Sed Rate CBC (INCLUDES DIFF/P LT) COMPREHENSIVE METABO LIC PANEL W/EGFR Arterial Duplex Bi-L ower EX Cardiac Cath - Left - GC STR - Adenosine Complete Echo LIPID PANEL CBC (H/H, RBC, INDIC ES, WBC, PLT) COMPREHENSIVE METABO LIC PANEL W/EGFR LIPID PANEL CBC (H/H, RBC, INDIC ES, WBC, PLT) COMPREHENSIVE METABO LIC PANEL W/EGFR Venous Doppler Bilat eral LE - Standing Venous Doppler Unila teral RLE Venous Doppler Bilat eral LE - Standing STR - Nuclear VITAMIN D, 25-HYDROX Y, LC/MS/MS Venous Doppler Unila teral RLE CBC (H/H, RBC, INDIC ES, WBC, PLT) COMPREHENSIVE METABO LIC PANEL W/EGFR LIPID PANEL Venous Doppler Unila teral RLE Complete Echo [facility] HISTORY OF PROCEDURES Procedure Date Procedure Name Provider Procedure Notes S tatus Babak Anne DO completed Babak Kurtz MD complete d Complex e/m visit add on Marie Lundberg MD completed EKG Marie navarro MD completed Babak Michaels MD completed Babak Herrera MD completed Babak Koehler MD complet ed Complex e/m visit add on Marie Lundberg MD completed EKG Marie navarro MD completed Babak Anne DO completed Babak Michaels MD completed Babak Resendiz MD completed Babak Resendiz MD completed Babak Resendiz MD completed Babak Koehler MD complet ed Babak Koehler MD complet ed Babak navarro MD completed Babak Koehler MD complet ed Babak navarro MD completed Babak Anne DO completed Spirometry Marie navarro MD completed FVC / MVV with bronchodilator - 00758 Marie Lundberg MD completed SpO2 w/o 6min walk/titration Marie Lundberg MD completed SVC - 24612 Marie navarro MD completed DLNV - 32846 Marie navarro MD completed Protime Nemesiojhonathan Anne DO completed Babak Koehler MD complet ed Babak navarro MD completed EKG Marie navarro MD completed Protime Ana Laura Koehler MD complet ed Protime Antonina Lopez RN completed Protld Koehler MD complet ed Babak Koehler MD complet ed Protime Nemesio Anne DO completed Protld Koehler MD complet ed Babak Koehler MD complet ed Protime Nemesio Anne DO completed EKG Marie navarro MD completed Protime Nemesiojhonathan Anne DO completed Protld Koehler MD complet ed Protld Koehler MD complet ed Babak Lockett MD complete d Protld navarro MD completed Babak Koehler MD complet ed Babak Koehler MD complet ed Babak Koehler MD complet ed EKG Marie navarro MD completed Protime Nemesiojhonathan Anne DO completed Protime Nemesiokimmie Anne DO completed Protime Nemesiojhonathan Anne DO completed Babak Koehler MD complet ed Babak navarro MD completed Schedule Followup Marie mendez MD call office after speaking to . concerned about insurance and [facility]. completed EKG Marie navarro MD completed Babak navarro MD completed Babak Ramos MD completed Babak anvarro MD completed Babak navarro MD completed EKG Marie navarro MD completed EKG Marie navarro MD completed EKG Marie navarro MD completed Spirometry Marie navarro MD completed FVC / MVV with bronchodilator - 27376 Marie Lundberg MD completed FRC - 14562 Marie navarro MD completed SpO2 w/o 6min walk/titration Marie Lundberg MD completed SVC - 49772 Marie navarro MD completed DLCO - 49452 Marie navarro MD completed EKG Marie navarro MD completed EKG Marie navarro MD completed Babak navarro MD completed Schedule Followup Marie mendez MD 1 MONTH PER SK completed EKG Marie navarro MD completed Babak Ramos MD completed Babak navarro MD completed Babak navarro MD completed EKG Marie navarro MD completed Babak navarro MD completed Babak navarro MD completed Babak navarro MD completed Schedule Followup Marie mendez MD fu in 1 month completed EKG Saulius Beckie navarro MD completed Babak Lockett MD complete d EKG ulius Beckie navarro MD completed Babak navarro MD completed Babak Lockett MD complete d EKG Marie navarro MD completed EKG Marie navarro MD completed EKG ulius Beckie navarro MD completed EKG Marie navarro MD completed EKG ulius Beckie navarro MD completed EKG ulius Beckie navarro MD completed Event Monitor Marie navarro MD completed FVC / MVV with bronchodilator - 82042 Marie Lundberg MD completed BLOOD COUNT HEMOGLOBIN ulius Isidro leyva MD completed FRC - 67009 Marie navarro MD completed SpO2 w/o 6min walk/titration Marie Lundberg MD completed DLCO - 91633 Marie navarro MD completed EKG Marie navarro MD completed EKG Marie navarro MD completed EKG Marie navarro MD completed Schedule Followup Marie mendez MD in 6 mo completed EKG Marie navarro MD completed Event Monitor Marie navarro MD completed EKG ulius Beckie navarro MD completed SNOMED-CT: 108977273251843 Current Medications Documented Marie Lundberg MD completed EKG Marie navarro MD completed EKG Marie navarro MD completed EKG Marie navarro MD EKG on 01/29 and 01/30 S tarted on Sotalol 80mg one tablet twice daily completed Event Monitor Marie navarro MD completed EKG Marie navarro MD completed SNOMED-CT: 408522710164341 Current Medications Documented Marie Lundberg MD completed EKG Marie navarro MD completed SNOMED-CT: 510061876117649 Current Medications Documented Marie Lundberg MD completed Schedule Followup Marie mendez MD fu in [address] Lundberg completed EKG Marie navarro MD completed SNOMED-CT: 771463289640817 Current Medications Documented Marie Lundberg MD completed EKG Marie navarro MD completed SNOMED-CT: 371535988995404 Current Medications Documented Marie Lundberg MD completed SNOMED-CT: 480693799801303 Current Medications Documented Marie Lundberg MD completed EKG Marie navarro MD completed EKG Marie navarro MD completed SNOMED-CT: 778419194780806 Current Medications Documented Marie Lundberg MD completed Stress EKG David Lockett MD complete d Regadenoson, 4 units Gilbert Ramos MD completed Cardiolite, 2 units Gilbert Ramos MD c ompleted SPECT Images Gilbert Ramos MD complete d EKG Marie navarro MD completed SNOMED-CT: 253222243480501 Current Medications Documented Marie Lundberg MD completed EKG Marie navarro MD completed Schedule Followup Marie mendez MD Please schedule a follow-up appointment with me in 1 year. completed EKG Marie navarro MD completed ePrescribe - Check t his box if eRx is used Marie Lundberg MD completed Schedule Followup Marie mendez MD Please schedule a follow-up appointment with me and ECHO in 6 months. completed EKG Marie navarro MD completed Schedule Followup Marie mendez MD fu in 3 weeks completed EKG Marie navarro MD completed EKG Marie navarro MD completed EKG Alo Herrera MD completed Schedule Followup Marie mendez MD repeat venous ultrasound in 3weeks P lease schedule a follow-up appointment with me in 3 week completed EKG Marie navarro MD completed Schedule Followup Marie mendez MD fu in 2 week completed EKG Marie navarro MD completed
--- OUTSIDE RECORDS SUMMARY | 2024-06-11 13:55 | XMS_ITS | Clinical Summary ---
Author Organization [facility] Address [address] [place] [address] Care Team Providers Care Independent Marketing Consultant Name Role Phone Jesus Vasquez MD Primary Care Provider [phone] Marie Lundberg MD Unavailable [phone] Adis Archer MD Unavailable [phone] Jackie Rae DO Unavailable [phone] Allergies Active Allergy Reactions Criticality Noted Date Comments Isosorbide Joint pain Low 09/17/2017 Lisinopril Cough Low 07/18/2014 Jokuzej-Kkb-Thq Reductase Inhibitors Muscle pain Medium Medications magnesium [...] (11/11/2021): Added automatically from request for surgery [id number] Family history of colon cancer 11/11/2021 Overview (11/11/2021): Added automatically from request for surgery [id number] Sensorineural hearing loss (SNHL) of both ears 0 06/22/2020 Assessment & Plan (06/24/2022 4:42 PM CDT): Stable, cleared implants in place Assessment & Plan (10/09/2020 11:21 AM CDT): Stable, has bilateral cochlear implants; reports that hearing is improving though still has generalized decreased hearing DVT (deep venous thrombosis) 02/05/2020 Overview (02/08/2020): Added automatically from request for surgery [id number] Assessment & Plan (12/03/2023 1:18 PM CDT): Stable, well controlled; DVT occurred after surgery; has been stable on anticoagulation for atrial fibrillation No evidence of recurrent disease; continue warfarin to maintain therapeutic range of INR 2-3 Assessment & Plan (02/12/2021 12:36 PM BUSINESS IMPROVEMENT MANAGER): Stable well controlled, on warfarin for atrial fibrillation; continue warfarin at therapeutic doses INR between 2-3 Assessment & Plan (10/09/2020 11:21 AM CDT): Stable, patient continues to follow with Pulmonary Medicine for PE burden Continue warfarin, patient on 5 mg daily and 7.5 mg Thursday Assessment & Plan (03/20/2020 2:27 PM BUSINESS IMPROVEMENT MANAGER): Currently on warfarin, difficulty with controlling INR, [...] monitor Assessment & Plan (01/13/2020 9:39 AM BUSINESS IMPROVEMENT MANAGER): Discussed causes of BPH with patient and how it impacts urine screen increases nocturia Prescribed tamsulosin today to evaluate for improvement in nocturnal symptoms Pulmonary asbestosis 11/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 Overview (11/04/2019): History of working in [employer] No advancement to lung cancer at this [...] control Assessment & Plan (12/15/2021 10:00 AM BUSINESS IMPROVEMENT MANAGER): Stable, mild decrease in weight from prior Continue to encourage weight loss Assessment & Plan (11/04/2019 3:00 PM CDT): Encourage portion control with diet, patient does not have regular exercise, but continues to work in [employer] in physically demanding job Assessment & Plan [...] days Assessment & Plan (12/15/2021 9:59 AM BUSINESS IMPROVEMENT MANAGER): Reports some easy bleeding with warfarin, no [...] today Assessment & Plan (02/12/2021 12:35 PM BUSINESS IMPROVEMENT MANAGER): Stable, rate controlled, has pacemaker in place [...] rate Assessment & Plan (03/20/2020 2:28 PM BUSINESS IMPROVEMENT MANAGER): Rate controlled, no hypotension or presyncope; continue [...] today on exam. Managed by Cardiology - SL Primary insomnia 05/26/2018 Assessment & Plan (11/21/2022 [...] current Assessment & Plan (12/14/2018 12:15 PM BUSINESS IMPROVEMENT MANAGER): Stable on current regimen History of left mastoidectomy 11/10/2016 Gastroesophageal reflux disease 08/10/2013 Assessment & Plan (12/15/2021 10:00 AM BUSINESS IMPROVEMENT MANAGER): Stable, well controlled Continue pantoprazole 40 mg daily Assessment & Plan (02/12/2021 12:36 PM BUSINESS IMPROVEMENT MANAGER): Stable, well controlled; continue pantoprazole 40 mg [...] daily Assessment & Plan (12/15/2021 10:00 AM BUSINESS IMPROVEMENT MANAGER): Stable, well controlled; blood pressure at target Continue above medications Assessment & Plan (07/02/2021 4:12 PM CDT): Stable, blood pressure well controlled; no chest pain headaches are episodes of orthostatics Continue valsartan 320 mg daily Assessment & Plan (02/12/2021 12:35 PM BUSINESS IMPROVEMENT MANAGER): Stable, well controlled; blood pressure at target [...] above Assessment & Plan (03/20/2020 2:28 PM BUSINESS IMPROVEMENT MANAGER): bp at target today with no hypotension, continue current medication Assessment & Plan (01/13/2020 9:38 AM BUSINESS IMPROVEMENT MANAGER): Stable well controlled, blood pressure at target [...] current. Assessment & Plan (12/14/2018 12:15 PM BUSINESS IMPROVEMENT MANAGER): Let controlled on current regimen continue current [...] (11/11/2021): Added automatically from request for surgery [id number] Pulmonary embolism without a cute cor pulmonale 02/06/2020 12/03/2023 Assessment & Plan (03/20/2020 2:28 PM BUSINESS IMPROVEMENT MANAGER): Continue on warfarin A-fib 12/29/2019 03/05/2020 Overview (12/29/2019): Added automatically from request for surgery [id number] Assessment & Plan (01/13/2020 9:38 AM BUSINESS IMPROVEMENT MANAGER): In office rate and rhythm controlled, and [...] & Plan (11/10/2016 1:58 PM CDT): Mr. Noguera nis a 66 year old male with [...] 03/23/20122019 Assessment & Plan (12/14/2018 12:12 PM BUSINESS IMPROVEMENT MANAGER): No current issues stable on current regimen Encounters Date Type Department Care Team Description 05/13/2024 1:00 PM CDT [facility] Visit [facility] [address] [address] Ema Hough NP Acute URI (Primary Dx); Class 2 obesity due to excess calories without serious comorbidity with body mass index (BMI) of 35.0 to 35.9 in adult 05/13/2024 Telephone [facility] [address] [address] Jesus Vasquez MD Med Refill 05/04/2024 10:15 AM CDT Procedure visit [facility] Otolaryngology [address] [place] [address], [address] [place] [address] Orin Rose Au.D. Sensorineural hearing loss, bilateral (Primary Dx) 04/12/2024 9:45 AM BUSINESS IMPROVEMENT MANAGER Infusion [facility] Non-Oncology Infusion [address] [place] [phone] Arteriosclerosis of coronary artery (Primary Dx) 04/04/2024 Orders Only [facility] Non-Oncology Infusion [address] [place] [phone] Cuauhtemoc Davies from Last 3 Months Immunizations Immunization Administration Dates Next Due DTaP, [...] 01/13/2020 ZOSTER LIVE 04/02/2011 ZOSTER Recombinant 08/13/2019,03/29/2019 Surgical History Surgery Date Site/Laterality Comments LASIK Bilateral EAR SURGERY HAND SURGERY KNEE SURGERY HEMORRHOID SURGERY 03/12/2009 - 04/08/2009 Excision thrombosed ext. hermorrhoid CORONARY ANGIOPLASTY WITH STENT PLACEMENT 02/09/2013 - 02/08/2014 CATARACT EXTRACTION [id number] CARDIAC ELECTROPHYSIOLOGY STUDY AND ABLATION 02/05/2020 COCHLEAR IMPLANT Bilateral COLONOSCOPY 11/09/2016 - 12/09/2016 COLONOSCOPY 12/30/2021 Medical History Medical History Date Comments Asbestosis (HCC) Acute myocardial infarction (HCC) 2013 Hypertension TIA (transient ischemic attack) Allergic rhinitis \ Glaucoma Atrial fibrillation (HCC) Coronary artery disease Basal cell carcinoma face Hard of hearing Colon polyp Pulmonary embolism without acute cor pulmonale ( HCC) 02/06/2020 Family History Medical History Relation Name Comments Coronary artery disease Brother Coronary artery disease Father Heart disease Father Coronary artery disease Mother Heart disease Mother Heart disease Other 1 Stroke Other 2 Cancer Sister 1 Cancer Sister 2 Cancer Sister 3 Relation Name Status Comments Brother Father Mother Other 1 Other 2 Sister 1 Alive Sister 2 Alive Sister 3 Alive Social History Tobacco Use Types Packs/Day Years [...] on file Legal Sex Male 9:24 AM BUSINESS IMPROVEMENT MANAGER Gender Identity Not on file Sexual Orientation Not on file 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 Not on file Not on file Not on file Obstetrics History Last Filed Vital Signs Vital Sign Reading [...] 05/13/2024 12:49 PM CDT Plan of Treatment Health Maintenance Due Date Last Done Comments Covid-19 Vaccine (2023-03 5 season) 2023 11/16/2021, 05/23/2021, 11/12/2020, Additional history exists Well Visit 65+ 12/01/2024 12/02/2023, 11/09, 11/28/2021, Additional history exists Colon Cancer Screening-Colonoscopy 12/30/2024 12/30/2021, 12/09/2016, 08/18/2011 Fall Risk Assessment 04/12/2025 04/12/2024, 12/02/2023, 06/11/2023, Additional history exists Depression Screening 05/13/2025 05/13/2024, 12/02/2023, 06/11/2023, Additional history exists DTaP/Tdap/Td Vaccine (3 - Td or Tdap) 01/12/2030 01/13/2020, 02/10/2012 Zoster Vaccine Completed 08/13/2019, 03/12, 04/02/2011 Pneumococcal vaccine 65+ Completed 020, 02/08/2015, 12/04/2010 Colon Cancer Screening-CT Colonography Discontinued 12/30/2021, 12/09/2016, 08/18/2011 Colon Cancer Screening-DNA Stool Discontinued 12/30/2021, 12/09/2016, 08/18/2011 Colon Cancer Screening-FIT Discontinued 12/30, 12/09/2016, 08/18/2011 Colon Cancer Screening-Sigmoidoscopy Discontinued 12/30/2021, 12/09/2016, 08/18/2011 Hepatitis B Screening Completed 05/27/2023 Hepatitis C Screening Completed 05/27/2023 Influenza Vaccine Completed 12/02/2023, , 11/16/2021, Additional history exists Medical Devices Implanted Type Area Line Cleaner Device Identifier Shelf Expiration Date Model / Serial / Lot [employer] [id number] Yuval Wynn Navalign 30mm 7fr 50mm 65cm 1 Push Delivery - [id number] Implanted:Qty: 1 on 02/08/2020 by Gilbert Ramos MD at [facility] IVC Filter [employer] [id number] / / Procedures Procedure Name Priority Date/Time Associated Diagnosis Comments HEPATITIS C ANTIBODY Routine 05/27/2023 2:15 PM CDT Need for hepatitis C screening test COLONOSCOPY 12/30/2021 10:08 AM BUSINESS IMPROVEMENT MANAGER from Last 3 Months or Most Recently [...] last revised on 2019. Testing performed by: [facility], [address] [place] [address]., [id number] Blood 05/27/2023 2:15 PM CDT 05/27/2023 7:29 PM CDT us Jesus Vasquez MD LAB MICROBIOLOGY - GENERA L ORDERABLES Final Result [facility]) [address] Department [place] [address] * COLONOSCOPY (12/30/2021 10:08 AM BUSINESS IMPROVEMENT MANAGER) Anatomical Region Laterality Modality Other Narrative Procedure Note Keith Payne MD - 12/30/2021 10:08 AM CST [facility] Patient Name: Eduard Noguera Procedure Date: 12/30/2021 10:08AM Date of : 1950 Admit Type: Outpatient Age: 71 Gender: Male Attending MD: Keith Payne M.D. Room: [facility] ENDOSCOPY ROOM 2 Note Status: Finalized Patient [...] scope was passed under direct vision. TheColonoscope [id number] was introduced through the anus and advanced [...] 10:08 AM Procedure Code(s): --- Professional --- 69326, Colonoscopy, flexible; with removal of tumor(s), polyp(s), or other lesion(s) by snare technique 86327, 59, Colonoscopy, flexible; with biopsy, single or multiple Diagnosis Code(s): --- Professional --- K57.30, Diverticulosis of large intestine without perforation orabscess without bleeding D12.0, Benign neoplasm of cecum D12.2, Benign neoplasm of ascending colon D12.3, Benign neoplasm of transverse colon (hepatic flexure orsplenic flexure) K64.9, Unspecified hemorrhoids Z86.010, Personal history of colonic polyps CPT copyright 2020 [employer]. All rights reserved. The codes documented in this report are preliminary and upon customer service sales associate reviewmay be revised to meet current compliance requirements. Recognized by the [employer] for promoting quality in endoscopy Keith Payne MD ENDOSCOPY PROCEDURES Final Re sult from Last 3 Months or Most Recently Relevant to Health Maintenance Insurance MEDICARE [employer] [place] [employer] [place] [employer] * Guarantor: EDUARD NOGUERA Account Type Relation to Patient Date of Phone Billing Address Personal/Family Self Advance Directives For more information, please contact: [phone] Documents on File Type Date Recorded Patient Homeworker Expl anation ADVANCE DIRECTIVE 12/30/2021 10:58 AM Kalie ing Will ADVANCE DIRECTIVE 12/30/2021 10:58 AM Pow er of Vulcanizing Machine Operator-Medical * Full Code (Latest Code Status on File) Date Activated Date Inactivated Comments 12/30/2021 9:59 AM 12/30/2021 3:49 PM * Full Code Date Activated Date Inactivated Comments 02/06/2020 5:36 AM 02/16/2020 8:58 PM Care Teams Independent Marketing Consultant Relationship Specialty Start Date End Date Jesus Vasquez MD [address] [place] [address] PCP - General Family Medicine 11/04/19 Marie Lundberg MD [address] [place] [address] Consulting Physician Cardiology 02/16/20 [place] [address] [address] [address] Consulting Physician Pulmonary Disease 02/16/20 Jackie Rae DO [address] [place] [address] Referring Physician Dermatology 07/26/20
--- OUTSIDE RECORDS SUMMARY | 2024-06-11 13:55 | XMS_ITS | Clinical Summary ---
Author Organization [facility] Address [address] [facility] [place] [address] Care Team Providers Care Temporary Data Entry Clerk Name Role Phone Danish Brown MD Primary Care Provider [phone] Source Comments [facility]non-owned Affiliates and Associated Physician Practices is amultiple site organization consisting of ambulatory clinics and hospital sitesin [place], [place], [place] and [place]. This disclosure is being madepursuant to the Care Everywhere program and may not contain all information available regarding this patient. Last updated 17.[facility] Allergies No known active allergies Medications * Be aware that medications may not be up to date on this document. Alwaysverify current medications with the patient. No known medications Active Problems Problem Noted Date Diagnosed Date Age factor 07/24/2009 Social History Tobacco Use Types Packs/Day Years Used Date Smoking Tobacco: Never Alcohol Use Standard Drinks/Week Comments Yes 0 (1 standard drink = 0.6 oz pur e alcohol) beer daily Sex and Gender Information Value Date Recorded Sex Assigned at Not on file Legal Sex Male 3:46 PM CDT Gender Identity Not on file Sexual Orientation Not on file Last Filed Vital Signs Vital Sign Reading Time Taken Comments Blood Pressure 160/98 07/26/2009 1:05 PM CDT manual right arm Pulse 86 07/26/2009 12:21 PM CDT Temperature 36.4 C (97.6 F) 07/26/2009 12:21 PM CDT Respiratory Rate 16 07/26/2009 12:2 1 PM CDT Oxygen Saturation 96% 07/26/2009 12: 21 PM CDT Inhaled Oxygen Concentration - - Weight 93.8 kg (206 lb 12.7 oz) 07/26/2009 7:18 AM CDT Height 172.7 cm (5' 8 ) 07/26/2009 7:18 AM CDT Body Mass Index 31.44 07/26/2009 7:18 AM CDT Plan of Treatment Health Maintenance Due Date Last Done Comments COLOGUARD (AGES 45-75) - COL ON CA SCREENING 1950 COLON MONITORING 1950 COLONOSCOPY - COLON CA SCREENING 1950 CT COLONOGRAPHY - COLON CA SCREENING 1950 Colorectal Cancer Screening 1950 FIT - COLON CA SCREENING 1950 FLEX SIG - COLON CA SCREENING 1950 LIPID TESTING 1950 HEPATITIS C SCREENING 04/26/1967 DTAP/TDAP/TD VACCINES (1 - Tdap) 1968 PNEUMOCOCCAL VACCINE 50+ (1 of 1 - PCV) 05/01/1999 ZOSTER VACCINE (1 of 2) 05/01/1999 COVID-19 VACCINE (1 - 2023-2 5 season) 2023 DEPRESSION SCREENING 02/10/2024 Respiratory Syncytial Virus (RSV) Vaccine Pt: or over 60 yrs (1 - 1-dose 75+ series) 2024 INFLUENZA VACCINE (Season Ended) 2024 HEPATITIS B VACCINE Aged Out No longe r eligible based on patient's age to complete this topic HIB VACCINE Aged Out No longer eligi ble based on patient's age to complete this topic HPV VACCINE Aged Out No longer eligi ble based on patient's age to complete this topic MENINGOCOCCAL (Group B) VACC INE SHARED DECISION-MAKING Aged Out No longer eligibl e based on patient's age to complete this topic MENINGOCOCCAL GROUPS A/C/Y/W VACCINE Aged Out No longer eligible b ased on patient's age to complete this topic Insurance [facility] Care Teams Temporary Data Entry Clerk Relationship Specialty Start Date End Date Danish Brown MD [address] [place], [place] [address] [place], [place] [id number] PCP - General 07/24/09
== END 2024-06-10 13:23 | disposition home or self-care (01) ==
PROVIDERS: PCP Specialist; Visit Provider Orthopaedic Surgery
DX: M17.12 Unilateral primary osteoarthritis, left knee (principal)
CPT/HCPCS: 73564